=== PATIENT | male | born 1995 | race Caucasian/White ===

== ENCOUNTER 2020-04-18 09:48 | Emergency (ER) | payer SELFPAY ==
--- OUTSIDE RECORDS SUMMARY | 2020-04-18 10:49 | XMS REPORT | Continuity of Care Document ---
:1995 Author Organization [facility] t Address [address] [place] [address] Care Team Providers Name Role Phone Asked, Pcp Primary Care Physician Unavailable Micaela MONTGOMERY, RAleyda Attending Clinician Problems This patient has no known problems. Allergies, Adverse Reactions, Alerts This patient has no known allergies or adverse reactions. Social History Social Habit Start Date Stop Date Quantity Comments Source Sex Assigned At Saman Smith Medications This patient has no known medications. Vital Signs Vital Name Observation Time Observation Value Comments Source Systolic blood 2019-06-17 19:57:00 134 mm[Hg] Afshanto n Catholic pressure Diastolic blood 2019-06-17 19:57:00 84 mm[Hg] Jelly on Catholic pressure Heart rate 2019-06-17 19:57:00 72 /min Yasmany Smith Respiratory rate 2019-06-17 19:57:00 16 /min Afshan Smith Oxygen saturation in 2019-06-17 19:57:00 99 /min Yasmany Smith Arterial blood by Pulse oximetry Body temperature 2019-06-17 16:58:30 36.89 Elo Afshan Smith Body height 2019-06-17 16:58:00 188 cm Yasmany Smith Procedures Procedure Date / Time Performed Performing Clinician [facility] e HC COMPLETE BLD COUNT 2019-06-17 18:15:00 Sheri Duffy W/AUTO DIFF COMPREHENSIVE METABOLIC 2019-06-17 18:15:00 Sheri Duffy PANEL LIPASE LEVEL 2019-06-17 18:15:00 Sheri Duffy [facility] ESTIMATED GFR 2019-06-17 18:15:00 Sheri Duffy [facility] Results Test Description Test Time Test Comments Results Result Comments Source Comprehensive metabolic panel 2019-06-17 19:12:10 Test Item Value Reference Range Interpretation Comme nts Sodium (test code = 2951-2) 132 135- 148 mEq/L L Potassium (test code = 2823-3) 3.4 3.5- 5.0 mEq/L L Chloride (test code = 2075-0) 94 98- 112 mEq/L L CO2 (test code = 2027-9) 20 24- 31 mEq/L L Anion gap (test code = 80206-7) 18@ANIO 7- 15 mEq/L H BUN (test code = 3094-0) 14 mg/dL 6-20 Creatinine (test code = 2160-0) 1.10 mg/dL 0.7-1.2 Glucose (test code = 2345-7) 98 mg/dL 65-99 Calcium (test code = 47157-1) 9.4 mg/dL 8.3-10.2 Protein (test code = 2885-2) 8.2 g/dL 6.3-8.3 Vokhjbg0920.6-7.0 g/dL1 laiq5200. 4-7.6 g/dL7 months-0eomw181 .1-7.3 g/dL1-2 taytw435.6-7.5 g/dL>3 bllfo544.0-8.0 g/xE40-5162953. 3-8.3 g/dL Albumin (test code = 1751-7) 4.2 g/dL 3.5-5 A/G ratio (test code = 1759-0) 1.0 0.7-3.8 Alkaline phosphatase (test code = 91 U/L 40-129 68-6) AST (test code = 1920-8) 107 U/L 10-50 H ALT (test code = 1742-6) 52 U/L 5-50 H Total bilirubin (test code = 1974-2) 0.7 mg/dL 0-1.2 Lab Interpretation (test code = Abnormal 08979-9) Yasmany MethodistLipase [id number] 19:12:10 Test Item Value Reference Range Interpretation Comments Lipase (test code = 3040-3) 27 U/L 13-60 Yasmany MethodistEstimated [id number] 19:12:10 Test Item Value Reference Range Interpretation Comments Estimated GFR (test >=90 mL/min/1.73 m2 Dax bingham Units code = 5488) InterpretationG 1 >=90 Normal or highG2 60-89 Mildly wftozwquqF2f 45-59 Mildly to mode rately xlunqiiwlN9v 30-44 Moderately to severely decreasedG4 15-29 Severely decre asedG5 <15 Kidn ey failureThe eGFR was calculated anita stevenson the Chronic Kidney Disease Epidemiology Co llaboration (CKD-EPI) equat ion. Interpretation is based on recommendations of the National Kidney Foundation-Kidn ey Disease Outcomes Qualit y Initiative (NKF-KDOQI) pub lished in 2014. [facility] MethodistCBC with platelet and awvpfxwphtci8310-51-96 18:49:23 Test Item Value Reference Range Interpretation Comments WBC (test code = 98940-4) 9.24 4.50- 11.00 k/uL RBC (test code = 67460-8) 5.57 m/uL 4.4-6 HGB (test code = 718-7) 14.6 g/dL 14-18 HCT (test code = 4544-3) 45.4 % 41-51 MCV (test code = 787-2) 81.5 fL 82-100 L MCH (test code = 785-6) 26.2 pg 27-34 L MCHC (test code = 786-4) 32.2 g/dL 31-37 RDW - SD (test code = 39.8 fL 37-55 11173-2) MPV (test code = 54779-2) 11.9 fL 8.8-13.2 Platelet count (test code 217 150- 400 k/uL = 62682-2) Nucleated RBC (test code 0.00 /100 WBC = 28441-0) Neutrophils (test code = 71.1 % 39-69 H 13442-8) Lymphocytes (test code = 14.8 % 25-45 L 33736-5) Monocytes (test code = 12.1 % 0-10 H 11477-1) Eosinophils (test code = 1.5 % 0-5 20353-5) Basophils (test code = 0.2 % 0-1 35521-5) Immature granulocytes 0.3 % 0-1 "Immat ure (test code = 31652-7) granul ocytes" (promyelocytes, myelocytes, metamyelocytes) Lab Interpretation (test Abnormal code = 59768-2) Yasmany MethodyuriUrine Ovwfgai2159-41-63 12:55:57 C Urine Added by GL_SJM_UA_CUL_INDNo growth at 24 hours. No growth at 48 [address].CT Abdomen and Pelvis w/ [id number] 15:14:34Patient: TERESA SINGH Date/Time06/13/2019 15:08 CSTReason for ExamRLQ;Abdominal painReportCT OF THE ABDOMEN AND PELVIS WITH CONTRASTLocation R 16HISTORY: Right lower quadrant painTECHNIQUE:5 millimeters contrast enhanced axial images of the abdomen and pelvis provided in venous delays. No PO contrast was administered. The images were reviewed in soft tissue, lung and bone windows. Sagittal and coronal images were reformatted. One or more the following dose reduction techniques is utilized: Use of iterative reconstruction, automated exposure control, adjustment of the mAs and Kv for the patient's weight. DLP 994.1 mGy-cm. Dose savings 22%.COMPARISON: None.FINDINGS:Lung bases: Clear.Abdomen Findings:Liver: No significant abnormality.Gallbladder: No significant abnormality.Pancreas: No significant abnormality.Spleen: No significantabnormality.Kidneys: No significant abnormality.Adrenals: No significant abnormality.Bowel: No significant abnormality.Appendix: Well identified and normal.Bone Windows: No significant abnormality.Vascular:No significant abnormality. Incidental note of a circumaortic left renal vein. Note multiple accessory right renal arteries.Lymph Nodes:No significant abnormality.Pelvis Findings:Bladder: No significant abnormality.Prostate: No significant abnormality.Seminal vesicles: No significant abnormality.IMPRESSION:1. Normal right lower quadrant appendixExam Date/Time06/13/2019 15:08 CSTReport2. No acute intra-abdominal findings identified by CT criteria. Final Dictated by: MD Karyna, Jenny FDictated DT/TM: 06/13/2019 3:10 pmSigned by: MD Troncoso Eniola FSigned (Electronic Signature): 06/13/2019 3:14 pmComprehensive Metabolic [id number] 14:41:50 Test Item Value Reference Range Interpretation Comments Sodium Level (test 138.0 mmol/L 135.0-145.0 code = Sodium Level) Potassium Level 4.3 mmol/L 3.5-5.1 (test code = Potassium Level) Chloride Level (test 100 mmol/L 98-105 code = Chloride Level) CO2 (test code = 25 mmol/L 22-29 CO2) Anion Gap (test code 13 mmol/L 7-16 = Anion Gap) BUN (test code = 7.50 mg/dL 6.00-20.00 BUN) Creatinine Level 0.90 mg/dL 0.70-1.20 (test code = Creatinine Level) BUN/Creat Ratio 8 N (test code = BUN/Creat Ratio) Glucose Level (test 83 mg/dL 70-115 code = Glucose Level) Calcium Level (test 9.4 mg/dL 8.3-10.5 code = Calcium Level) Alk Phos (test code 92 U/L 40-129 = Alk Phos) Bilirubin Total 0.4 mg/dL 0.1-0.9 (test code = Bilirubin Total) Albumin Level (test 4.7 g/dL 3.5-5.2 code = Albumin Level) Protein Total (test 7.9 g/dL 6.4-8.3 code = Protein Total) ALT (test code = 17 U/L 1-41 ALT) AST (test code = See Comments U/L 1-40 N Specime n AST) hemolyzed. AST 28 Globulin (test code 3.2 g/dL 2.9-3.1 H = Globulin) A/G Ratio (test code 1.5 ratio N = A/G Ratio) Lipase [id number] 14:41:50 Test Item Value Reference Range Interpretation Comments Lipase Level (test code = Lipase 27 U/L 13-60 Level) Comprehensive Metabolic [id number] 14:41:50 Test Item Value Reference Range Interpretation Comments Sodium Level (test 138.0 mmol/L 135.0-145.0 code = Sodium Level) Potassium Level 4.3 mmol/L 3.5-5.1 (test code = Potassium Level) Chloride Level 100 mmol/L 98-105 (test code = Chloride Level) CO2 (test code = 25 mmol/L 22-29 CO2) Anion Gap (test 13 mmol/L 7-16 code = Anion Gap) BUN (test code = 7.50 mg/dL 6.00-20.00 BUN) Creatinine Level 0.90 mg/dL 0.70-1.20 (test code = Creatinine Level) BUN/Creat Ratio 8 N (test code = BUN/Creat Ratio) Glucose Level (test 83 mg/dL 70-115 code = Glucose Level) Calcium Level (test 9.4 mg/dL 8.3-10.5 code = Calcium Level) Alk Phos (test code 92 U/L 40-129 = Alk Phos) Bilirubin Total 0.4 mg/dL 0.1-0.9 (test code = Bilirubin Total) Albumin Level (test 4.7 g/dL 3.5-5.2 code = Albumin Level) Protein Total (test 7.9 g/dL 6.4-8.3 code = Protein Total) ALT (test code = 17 U/L 1-41 ALT) AST (test code = See Comments U/L 1-40 N Specime n hemolyzed. AST) AST 28 Globulin (test code 3.2 g/dL 2.9-3.1 H = Globulin) A/G Ratio (test 1.5 ratio N code = A/G Ratio) eGFR AA (test code >60 mL/min/1.73 N eGFR ( estimated = eGFR AA) m2 Glomerular Filtration Rate ) is an estimated va lue, calculated from the patient's serum creatinine usin g the MDRD equati on. It is NOT the patient's actua l GFR. The eGFR provides a more clinically usef ul measure of kidn ey disease than se rum creatinine alone.This calculation maryan es sex and race in to account, if the information is provided. If th e race is not provided, and t he patient is -Carri n, multiply by 1.2 12. If sex is not provided, and t he patient is fema le, multiply by 0.7 42. Results for patients <18 ye ars of age have not been validated by the MDRD study and should be interpreted wit h caution. eGFR Result Interpretation: eGFR > or = 60 is in the Normal RangeeGF R < 60 may mean kid jennie diseaseeGFR < 1 5 may mean kidney failure Rang es recommended by the National Kidney Foundation, http://nkdep.ni h.go v Comprehensive Metabolic [id number] 14:41:50 Test Item Value Reference Range Interpretation Comments Sodium Level (test 138.0 mmol/L 135.0-145.0 code = Sodium Level) Potassium Level 4.3 mmol/L 3.5-5.1 (test code = Potassium Level) Chloride Level 100 mmol/L 98-105 (test code = Chloride Level) CO2 (test code = 25 mmol/L 22-29 CO2) Anion Gap (test 13 mmol/L 7-16 code = Anion Gap) BUN (test code = 7.50 mg/dL 6.00-20.00 BUN) Creatinine Level 0.90 mg/dL 0.70-1.20 (test code = Creatinine Level) BUN/Creat Ratio 8 N (test code = BUN/Creat Ratio) Glucose Level (test 83 mg/dL 70-115 code = Glucose Level) Calcium Level (test 9.4 mg/dL 8.3-10.5 code = Calcium Level) Alk Phos (test code 92 U/L 40-129 = Alk Phos) Bilirubin Total 0.4 mg/dL 0.1-0.9 (test code = Bilirubin Total) Albumin Level (test 4.7 g/dL 3.5-5.2 code = Albumin Level) Protein Total (test 7.9 g/dL 6.4-8.3 code = Protein Total) ALT (test code = 17 U/L 1-41 ALT) AST (test code = See Comments U/L 1-40 N Specime n hemolyzed. AST) AST 28 Globulin (test code 3.2 g/dL 2.9-3.1 H = Globulin) A/G Ratio (test 1.5 ratio N code = A/G Ratio) eGFR AA (test code >60 mL/min/1.73 N eGFR ( estimated = eGFR AA) m2 Glomerular Filtration Rate ) is an estimated va lue, calculated from the patient's serum creatinine usin g the MDRD equati on. It is NOT the patient's actua l GFR. The eGFR provides a more clinically usef ul measure of kidn ey disease than se rum creatinine alone.This calculation maryan es sex and race in to account, if the information is provided. If th e race is not provided, and t he patient is -Carri n, multiply by 1.2 12. If sex is not provided, and t he patient is fema le, multiply by 0.7 42. Results for patients <18 ye ars of age have not been validated by the MDRD study and should be interpreted wit h caution. eGFR Result Interpretation: eGFR > or = 60 is in the Normal RangeeGF R < 60 may mean kid jennie diseaseeGFR < 1 5 may mean kidney failure Rang es recommended by the National Kidney Foundation, http://nkdep.ni h.go v eGFR Non-AA (test >60.00 N eGFR (sunil mated code = eGFR Non-AA) mL/min/1.73 m2 Glomer ular Filtration Rate ) is an estimated va lue, calculated from the patient's serum creatinine usin g the MDRD equati on. It is NOT the patient's actua l GFR. The eGFR provides a more clinically usef ul measure of kidn ey disease than se rum creatinine alone.This calculation maryan es sex and race in to account, if the information is provided. If th e race is not provided, and t he patient is -Carri n, multiply by 1.2 12. If sex is not provided, and t he patient is fema le, multiply by 0.7 42. Results for patients <18 ye ars of age have not been validated by the MDRD study and should be interpreted wit h caution. eGFR Result Interpretation: eGFR > or = 60 is in the Normal RangeeGF R < 60 may mean kid jennie diseaseeGFR < 1 5 may mean kidney failure Rang es recommended by the National Kidney Foundation, http://nkdep.ni h.go v Urinalysis with Culture, if [id number] 14:13:35 Test Item Value Reference Range Interpretation Comments UA Color (test code = UA YELLO Yellow Color) UA Appear (test code = CLEAR Clear UA Appear) UA pH (test code = UA 7 N pH) UA Spec Grav (test code 1.025 1.001-1.035 = UA Spec Grav) UA Glucose (test code = NEG Negative UA Glucose) UA Bili (test code = UA 1 mg/dL Negative A Bili) UA Ketones (test code = 15 mg/dL Negative A UA Ketones) UA Blood (test code = UA NEG Negative Blood) UA Protein (test code = NEG Negative UA Protein) UA Urobilinogen (test 4 mg/dL >0.2 A code = UA Urobilinogen) UA Nitrite (test code = NEG Negative UA Nitrite) UA Leuk Est (test code = NEG Negative UA Leuk Est) UA Micro Ind? (test code Indicated Not Indicated A Re sult created by = UA Micro Ind?) rule GL_SJM_UA_MICRO _IND Urinalysis [id number] 14:13:34 Test Item Value Reference Range Interpretation Comments UA WBC (test code = UA WBC) 0-5 0-5 UA RBC (test code = UA RBC) 0-5 0-5 UA Bacteria (test code = UA Few A Bacteria) UA Squam Epithelial (test code = UA 0-5 Squam Epithelial) UA Mucous (test code = UA Mucous) Moderate A Complete Blood Count with [id number] 13:47:22 Test Item Value Reference Range Interpretation Comments WBC (test code = WBC) 9.6 x10 4.4-10.5 RBC (test code = RBC) 5.62 x10 4.10-5.70 Hgb (test code = Hgb) 14.8 g/dL 13.4-17.4 MCV (test code = MCV) 82.70 fL 80.00-100.00 Hct (test code = Hct) 46.5 % 38.7-52.0 MCHC (test code = 31.80 g/dL 32.00-37.50 L MCHC) RDW CV (test code = 13.8 % 11.5-14.5 RDW CV) MCH (test code = MCH) 26.3 pg 27.0-32.5 L Platelets (test code = 215.0 x10 140.0-440.0 Platelets) MPV (test code = MPV) 11.8 fL N Slide Review (test Auto Auto Result cr eated by code = Slide Review) GL_SJM_ SLIDE_REV_AUTO nRBC (test code = 0 N nRBC) NRBC Abs (test code = 0.00 x10 N NRBC Abs) IPF (test code = IPF) 0 % N Automated [id number] 13:47:22 Test Item Value Reference Range Interpretation Comments Neutro Auto (test code = Neutro 74.2 % 36.0-70.0 H Auto) Lymph Auto (test code = Lymph Auto) 15.2 % 12.0-44.0 [place] Auto (test code = [place] Auto) 9.0 % 0.0-11.0 Eos, Auto (test code = Eos, Auto) 1.1 % 0.0-7.0 Basophil Auto (test code = Basophil 0.2 % 0.0-2.0 Auto) Neutro Absolute (test code = Neutro 7.1 x10 1.6-7.4 Absolute) Lymph Absolute (test code = Lymph 1.46 x10 .50-4.60 Absolute) [place] Absolute (test code = [place] .86 x10 .00-1.20 Absolute) Eos Absolute (test code = Eos 0.11 x10 0.00-0.74 Absolute) Baso Absolute (test code = Baso 0.02 x10 0.00-0.21 Absolute) IG [id number] 13:47:22 Test Item Value Reference Range Interpretation Comments IG (test code = IG) 0.3 % 0.0-5.0 IG Abs (test code = IG Abs) 0 x10 N
--- OUTSIDE RECORDS SUMMARY | 2020-04-18 10:49 | XMS REPORT | Clinical Summary ---
:1995 Author Organization [facility] Address [address] [place] [address] Care Team Providers Name Role Phone Asked, No Pcp Primary Care Provider Unavailable Allergies No Known Active Allergies Medications No known medications Active Problems Not on file Encounters Date Type Specialty Care Team Description 06/17/2019 Emergency Emergency Medicine Candelaria Hinojosa (Primary Dx); Juan William MD Nausea and v omiting, intractability of vomiting not specified, unspecified vomiting type after 04/18/2019 Social History Tobacco Use Types Packs/Day Years Used Date Never Assessed Sex Assigned at Date Recorded Not on file Last Filed Vital Signs Vital Sign Reading Time Taken Comments Blood Pressure 134/84 06/17/2019 7:57 PM [employer] Pulse 72 06/17/2019 7:57 PM [employer] Temperature 36.9 C (98.4 F) 06/17/2019 4:58 PM [employer] Respiratory Rate 16 06/17/2019 7:57 PM [employer] Oxygen Saturation 99% 06/17/2019 7:57 PM [employer] Inhaled Oxygen Concentration - - Weight - - Height 188 cm (6' 2") 06/17/2019 4:58 PM [employer] Body Mass Index - - Plan of Treatment Not on file Procedures Procedure Name Priority Date/Time Associated Comments Diagnosis ESTIMATED GFR STAT 06/17/2019 6:15 Results fo r this PM [employer] procedure are i n the results section. LIPASE LEVEL STAT 06/17/2019 6:15 Results for this PM [employer] procedure are i n the results section. COMPREHENSIVE STAT 06/17/2019 6:15 Results fo r this METABOLIC PANEL PM [employer] procedure ar e in the results section. HC COMPLETE BLD COUNT STAT 06/17/2019 6:15 Re sults for this W/AUTO DIFF PM [employer] procedure are i n the results section. after 04/18/2019 Results Estimated GFR (06/17/2019 6:15 PM [employer]) Estimated GFR >=90 mL/min/1.73 [facility] Comment: m2 HOSPITAL Catergory Units Interpretation G1 >=90 Normal or high G2 60-89 Mildly decreased G3a 45-59 Mildly to moderately decreas ed G3b 30-44 Moderately to severely decre ased G4 15-29 Severely decreased G5 <15 Kidney failure The eGFR was calculated using the Chronic Kidney Disea se Epidemiology Collaboration (CKD-EPI) equation. Interpretation is based on recommendations of the National Kidney Foundation-Kidney Disease Outcomes Rebel lity Initiative (NKF-KDOQI) published in 2014. Specimen Plasma specimen Performing Organization Address City/State/ZIP Code Phon e Number [facility] DEPARTMENT OF PATHOLOGY AND [address] [place], [place] [address] [facility] [address] [place] [address] CBC with platelet and differential (06/17/2019 6:15 PM [employer]) Pathologist [facility] WBC 9.24 4.50 - 11.00 [facility] k/uL HOSPITAL RBC 5.57 4.40 - 6.00 [facility] m/uL [facility] HGB 14.6 14.0 - 18.0 [facility] HCT 45.4 41.0 - 51.0 % [facility] MCV 81.5 (L) 82.0 - 100.0 [facility] MCH 26.2 (L) 27.0 - 34.0 pg [facility] MCHC 32.2 31.0 - 37.0 [facility] RDW - SD 39.8 37.0 - 55.0 fL [facility] MPV 11.9 8.8 - 13.2 fL [facility] Platelet count 217 150 - 400 k/uL [facility] Nucleated RBC 0.00 /100 WBC [facility] Neutrophils 71.1 (H) 39.0 - 69.0 % [facility] Lymphocytes 14.8 (L) 25.0 - 45.0 % [facility] Monocytes 12.1 (H) 0.0 - 10.0 % [facility] Eosinophils 1.5 0.0 - 5.0 % [facility] Basophils 0.2 0.0 - 1.0 % [facility] Immature granulocytes 0.3Comment: 0.0 - 1.0 % [facility] "Immature HOSPITAL granulocytes" (promyelocytes , myelocytes, metamyelocytes ) Specimen Blood Performing Organization Address City/[facility] Phon e Number [facility] DEPARTMENT OF PATHOLOGY AND [address] [place], [place] [address] [facility] [address] [place] [address] Lipase level (06/17/2019 6:15 PM [employer]) Pathologist Sig nature Lipase 27 13 - 60 U/L [facility] Specimen Plasma specimen Performing Organization Address City/[facility] Phon e Number [facility] DEPARTMENT OF PATHOLOGY AND [address] [place], [place] [address] [facility] [address] [place] [address] Comprehensive metabolic panel (06/17/2019 6:15 PM [employer]) Sodium 132 (L) 135 - 148 [facility] mEq/L [facility] Potassium 3.4 (L) 3.5 - 5.0 [facility] mEq/L [facility] Chloride 94 (L) 98 - 112 mEq/L [facility] CO2 20 (L) 24 - 31 mEq/L [facility] Anion gap 18@ANIO (H) 7 - 15 mEq/L [facility] BUN 14 6 - 20 mg/dL [facility] Creatinine 1.10 0.70 - 1.20 [facility] mg/dL HOSPITAL Glucose 98 65 - 99 mg/dL [facility] Calcium 9.4 8.3 - 10.2 [facility] mg/dL [facility] Protein 8.2 6.3 - 8.3 g/dL [facility] Comment: HOSPITAL Ygyguqx8101.6-7.0 g/dL 1 xeht6813.4-7.6 g/dL 7 months-1lovw041.1-7.3 g/dL 1-2 jxtok386.6-7.5 g/dL >3 .0-8.0 g/dL 18-5578954.3-8.3 g/dL Albumin 4.2 3.5 - 5.0 g/dL [facility] A/G ratio 1.0 0.7 - 3.8 [facility] Alkaline phosphatase 91 40 - 129 U/L [facility] AST 107 (H) 10 - 50 U/L [facility] ALT 52 (H) 5 - 50 U/L [facility] Total bilirubin 0.7 0.0 - 1.2 [facility] mg/dL HOSPITAL Specimen Plasma specimen Performing Organization Address City/State/ZIP Code Phon e Number [facility] DEPARTMENT OF PATHOLOGY AND [address] [place], [place] [address] [facility] [address] [place] [address] after 04/18/2019 Advance Directives For more information, please contact: [phone] Type Date Recorded Patient [employer] Explanati on Advance Directives, Living Will and 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
--- NOTE | 2020-04-18 11:44 | RAD REPORT ---
EXAM DESCRIPTION: RAD - Ankle Right 3 View - 04/18/2020 10:52 am CLINICAL HISTORY: Right ankle pain FINDINGS: 6 millimeter bony density lies adjacent to the lateral aspect of the talus probably an acu te avulsion fracture. There is adjacent soft tissue swelling. No dislocation noted
--- NOTE | 2020-04-18 11:50 | ER ---
Nurse's Notes [facility] Name: Jose Rafael Stevenson Age: 24 yrs Sex: Male : 1995 Arrival Date: 04/18/2020 Time: 09:49 Bed 20 Private MD: Diagnosis: Avulsion fracture (chip fracture) of talus Presentation: 04/18 10:17 Chief complaint: Patient states: R ankle pain that began yesterday after stepping in a ss hole. Coronavirus screen: Client denies travel out of the [place] in the last 14 days. Ebola Screen: Patient denies exposure to infectious person. Patient denies travel to an Ebola-affected area in the 21 days before illness onset. Initial Sepsis Screen: Does the patient meet any 2 criteria? No. Patient's initial sepsis screen is negative. Does the patient have a suspected source of infection? No. Patient's initial sepsis screen is negative. Risk Assessment: Do you want to hurt yourself or someone else? Patient reports no desire to harm self or others. Onset of symptoms was April 18, 2020. 10:17 Method Of Arrival: Wheelchair ss 10:17 Acuity: DOMO 4 ss Historical: - Allergies: 10:18 No Known Allergies; ss - Home Meds: 10:18 None [Active]; ss - PMHx: 10:18 None; ss - PSHx: 10:18 None; ss - Immunization history:: Adult Immunizations up to date. - Social history:: Smoking status: Patient reports the use of cigarette tobacco products, smokes one pack cigarettes per day. Screenin:19 Abuse screen: Denies threats or abuse. Denies injuries from another. Nutritional ss screening: No deficits noted. Tuberculosis screening: Never had TB. 10:19 Fall Risk No fall in past 12 months (0 pts). Secondary diagnosis (15 points) impaired ss mobility, No IV (0 pts). Ambulatory Aid- None/Bed Rest/Nurse Assist (0 pts). Gait- Normal/Bed Rest/Wheelchair (0 pts) Mental Status- Oriented to own ability (0 pts). Assessment: 10:19 General: Appears in no apparent distress. comfortable, Behavior is calm, cooperative. ss Pain: Complains of pain in anterior aspect of right ankle Pain currently is 10 out of 10 on a pain scale. Quality of pain is described as aching, tender. Neuro: Level of Consciousness is awake, alert, obeys commands, Oriented to person, place, time, situation, Speech is normal, Facial symmetry appears normal. Cardiovascular: Capillary refill < 3 seconds is brisk in bilateral fingers. Respiratory: Airway is patent Respiratory effort is even, unlabored, Respiratory pattern is regular, symmetrical. GI: Patient currently denies diarrhea, nausea, vomiting. :. EENT: No signs and/or symptoms were reported regarding the EENT system. Derm: Skin is intact, is healthy with good turgor, Skin is dry, Skin is pink, warm \T\ dry. normal. Musculoskeletal: Range of motion: intact in all extremities, Swelling present in anterior aspect of right ankle. Vital Signs: 10:17 BP 129 / 92; Pulse 99; Resp 16; Temp 98.2(TE); Pulse Ox 99% ; Height 6 ft. 2 in. ss (187.96 cm); Pain 10/10; ED Course: 09:49 Patient arrived in ED. as 09:50 Natal[facility] Swift [facility]C [facility] kb 09:50 Joaquin Cornelius MD is Attending Physician. kb 10:18 Triage completed. ss 10:18 Arm band placed on right wrist. ss 10:19 Patient has correct armband on for positive identification. ss 10:54 Ankle Right 3 View XRAY In Process Unspecified. EDMS 12:05 Emily Gil, RN is Primary Nurse. ss 12:22 Orthoglass splint: Posterior short lleg splint applied on right leg. capillary refill dh3 <3 seconds, assisted by Emily Gil and viewed by Nataliya Swift. 12:44 No provider procedures requiring assistance completed. Patient did not have IV access ss during this emergency room visit. Administered Medications: No medications were administered Outcome: 11:50 Discharge ordered by . kb 12:44 Discharged to home ambulatory. ss 12:44 Condition: good 12:44 Discharge instructions given to patient, Instructed on discharge instructions, follow up and referral plans. medication usage, Demonstrated understanding of instructions, follow-up care, medications, Prescriptions given X 1. 12:51 Patient left the ED. ss Signatures: Dispatcher [employer] EDIA Nataliya Swift FNP-C FNP-Chantel Tapia as Emily Gil RN RN Christelle Rodrigues 3 Corrections: (The following items were deleted from the chart) 12:22 Orthoglass splint: Posterior short lleg splint applied on right leg. capillary dh3 refill <3 seconds 3 12:22 Orthoglass splint: Posterior short lleg splint applied on right leg. capillary dh3 refill <3 seconds, viewed by Nataliya Swift. 3
--- NOTE | 2020-04-18 11:50 | EDPHYS ---
Physician Documentation [facility] Name: Jose Rafael Stevenson Age: 24 yrs Sex: Male : 1995 Arrival Date: 04/18/2020 Time: 09:49 Bed 20 Private MD: ED Physician Joaquin Cornelius HPI: 04/18 11:48 This 24 yrs old Male presents to ER via Wheelchair with complaints of Ankle kb Injury. 11:48 The patient presents with an injury, pain, swelling, tenderness. The complaints affect kb the right ankle. Onset: The symptoms/episode began/occurred yesterday. Context: The problem was sustained outdoors, resulted from stepping in hole. Associated signs and symptoms: Pertinent positives: swelling, Pertinent negatives: calf tenderness, fever, nausea, numbness, rash, tingling, vomiting, warmth, weakness. Modifying factors: The symptoms are alleviated by nothing, the symptoms are aggravated by weight bearing. Severity of symptoms: At their worst the symptoms were moderate, in the emergency department the symptoms are unchanged. The patient has not experienced similar symptoms in the past. The patient has not recently seen a physician. Historical: - Allergies: 10:18 No Known Allergies; ss - Home Meds: 10:18 None [Active]; ss - PMHx: 10:18 None; ss - PSHx: 10:18 None; ss - Immunization history:: Adult Immunizations up to date. - Social history:: Smoking status: Patient reports the use of cigarette tobacco products, smokes one pack cigarettes per day. ROS: 11:46 Constitutional: Negative for fever, chills, and weight loss, Cardiovascular: Negative kb for chest pain, palpitations, and edema, Respiratory: Negative for shortness of breath, cough, wheezing, and pleuritic chest pain, Abdomen/GI: Negative for abdominal pain, nausea, vomiting, diarrhea, and constipation, Back: Negative for injury and pain, Skin: Negative for injury, rash, and discoloration, Neuro: Negative for headache, weakness, numbness, tingling, and seizure. 11:46 MS/extremity: Positive for pain, swelling, tenderness, of the anterior aspect of right ankle. Exam: 11:46 Constitutional: This is a well developed, well nourished patient who is awake, alert, kb and in no acute distress. Head/Face: Normocephalic, atraumatic. Chest/axilla: Normal chest wall appearance and motion. Nontender with no deformity. No lesions are appreciated. Cardiovascular: Regular rate and rhythm with a normal S1 and S2. No gallops, murmurs, or rubs. Normal PMI, no JVD. No pulse deficits. Respiratory: Lungs have equal breath sounds bilaterally, clear to auscultation and percussion. No rales, rhonchi or wheezes noted. No increased work of breathing, no retractions or nasal flaring. Abdomen/GI: Soft, non-tender, with normal bowel sounds. No distension or tympany. No guarding or rebound. No evidence of tenderness throughout. Skin: Warm, dry with normal turgor. Normal color with no rashes, no lesions, and no evidence of cellulitis. Neuro: Awake and alert, GCS 15, oriented to person, place, time, and situation. Cranial nerves II-XII grossly intact. Motor strength 5/5 in all extremities. Sensory grossly intact. Cerebellar exam normal. Normal gait. 11:46 Musculoskeletal/extremity: Extremities: grossly normal except: noted in the anterior aspect of right ankle: pain, swelling, tenderness, ROM: intact in all extremities, Circulation is intact in all extremities. Sensation intact. Weight bearing: can bear weight with assistance only. Vital Signs: 10:17 BP 129 / 92; Pulse 99; Resp 16; Temp 98.2(TE); Pulse Ox 99% ; Height 6 ft. 2 in. ss (187.96 cm); Pain 10/10; Procedures: 14:01 Splinting: Splint applied to right leg using Orthoglass splint, applied by tech. kb Examined by me, post splint application: neurovascular intact, 2+ distal pulses palpable, Patient tolerated well. MDM: 10:19 Patient medically screened. kb 11:48 Data reviewed: vital signs, nurses notes. Data interpreted: Pulse oximetry: on room air kb is 99 %. Interpretation: normal. Counseling: I had a detailed discussion with the patient and/or guardian regarding: the historical points, exam findings, and any diagnostic results supporting the discharge/admit diagnosis, radiology results, the need for outpatient follow up, a orthopedic surgeon, to return to the emergency department if symptoms worsen or persist or if there are any questions or concerns that arise at home. 04/18 10:19 Order name: Ankle Right 3 View XRAY; Complete Time: 11:45 kb 04/18 11:46 Order name: Short Leg Splint; Complete Time: 12:25 kb 04/18 11:46 Order name: Crutches; Complete Time: 12:25 kb Administered Medications: No medications were administered Disposition: 04/18/20 11:50 Discharged to Home. Impression: Avulsion fracture (chip fracture) of talus. - Condition is Stable. - Discharge Instructions: Ankle Fracture, [id number]. - Prescriptions for Ibuprofen 800 mg Oral Tablet - take 1 tablet by ORAL route every 8 hours As needed take with food; 30 tablet. - Medication Reconciliation Form, Thank You Letter, Antibiotic Education, Prescription Opioid Use form. - Follow up: Emergency Department; When: As needed; Reason: Worsening of condition. Follow up: Private Physician; When: 2 - 3 days; Reason: Recheck today's complaints, Continuance of care, Re-evaluation by your physician. Addendum: 04/19/2020 13:20 Co-signature as Attending Physician, Joaquin Cornelius MD I agree with the assessment and k dr plan of care. Signatures: Dispatcher [employer] EDMS Nataliya Swift, DOOR CAPTAIN-C DOOR CAPTAIN-Ckb Joaquin Cornelius MD MD [facility] Emily Gil RN RN ss Corrections: (The following items were deleted from the chart) 04/18 12:51 11:50 04/18/2020 11:50 Discharged to Home. Impression: Avulsion fracture (chip ss fracture) of talus. Condition is Stable. Forms are Medication Reconciliation Form, Thank You Letter, Antibiotic Education, Prescription Opioid Use. Follow up: Emergency Department; When: As needed; Reason: Worsening of condition. Follow up: Private Physician; When: 2 - 3 days; Reason: Recheck today's complaints, Continuance of care, Re-evaluation by your physician. kb
[2020-04-18 13:08] VITALS: BP 129/92; TEMP 98.2; O2SAT 99
== END 2020-04-18 12:51 | disposition home or self-care (01) ==
LOC: ER 09:48
PROC: 2W3QX1Z Immobilization of Right Lower Leg using Splint (ICD-10-PCS; principal; 2020-04-18)
DX: S92.151A Displaced avulsion fracture (chip fracture) of right talus, initial encounter for closed fracture (principal); X58.XXXA Exposure to other specified factors, initial encounter; Y93.01 Activity, walking, marching and hiking; Y92.89 Other specified places as the place of occurrence of the external cause; F17.210 Nicotine dependence, cigarettes, uncomplicated
CPT/HCPCS: 99283

== ENCOUNTER 2022-02-26 21:01 | Emergency (ER) | payer SELFPAY ==
--- OUTSIDE RECORDS SUMMARY | 2022-02-26 21:04 | XMS REPORT | Continuity of Care Document ---
:1995 Author Organization [facility] t Address [address] [place] [address] [address] [place] [address] Care Team Providers Name Role Phone Asked, No Pcp Primary Care Physician Unavailable Problems This patient has no known problems. Allergies, Adverse Reactions, Alerts This patient has no known allergies or adverse reactions. Social History Social Habit Start Date Stop Date Quantity Comments Source Sex Assigned At [birth year] [facility] 00:00:00 00:00:00 Smoking Status Start Date Stop Date Source Tobacco smoking consumption unknown [facility] Medications Ordered Filled Start Stop Current Ordering Indication Dosage Frequency Signature Comments Components Source Medication Medication Date Date Medication? Clinician (SIG) Name Name No known 2018-07 No No known Metho di medications 2-[address] 17:12: [facility] l Procedures This patient has no known procedures. Results Test Description Test Time Test Comments Results Result [facility] e Comments Urine Culture 2019-06-14 C Urine Added No growth at 24 hours. 12:55:57 by No growth at 48 hours. GL_SJM_UA_CUL_ IND CT Abdomen and 2019-06-13 Patient: TERESA SINGH Pelvis w/ Contrast 15:14:34 Date/Time06/13/2019 15:08 CSTReason for ExamRLQ;Abdominal painReportCT OF [...] 22%.COMPARISON: None.FINDINGS:Lung bases: Clear.Abdomen Findings:Liver: No significant abnormality.Gallbladde r: No significant abnormality.Pancreas: No significant abnormality.Spleen: No significant abnormality.Kidneys: No significant abnormality.Adrenals: No significant abnormality.Bowel: No significant abnormality.Appendix: Well identified and normal.Bone Windows: No significant abnormality.Vascular:N o significant abnormality. Incidental note of a circumaortic left renal vein. Note multiple accessory right renal arteries.Lymph Nodes:No significant abnormality.Pelvis Findings:Bladder: No significant abnormality.Prostate: No significant abnormality.Seminal vesicles: No significant abnormality.IMPRESSION :1. Normal right lower quadrant appendixExam Date/Time06/13/2019 15:08 CSTReport2. No acute intra-abdominal findings identified by CT criteria. Final Dictated by: MD Troncoso Eniola FDictated DT/TM: 06/13/2019 3:10 pmSigned by: MD Troncoso Eniola FSigned (Electronic Signature): 06/13/2019 3:14 pm Comprehensive Metabolic Panel 2019-06-13 14:41:50 Test Item Value Reference Range Interpretation Comme nts Sodium Level (test code = 138.0 mmol/L 135.0-145.0 Sodium Level) Potassium Level (test code = 4.3 mmol/L 3.5-5.1 Potassium Level) Chloride Level (test code = 100 mmol/L 98-105 Chloride Level) CO2 (test code = CO2) 25 mmol/L 22-29 Anion Gap (test code = Anion 13 mmol/L 7-16 Gap) BUN (test code = BUN) 7.50 mg/dL 6.00-20.00 Creatinine Level (test code 0.90 mg/dL 0.70-1.20 = Creatinine Level) BUN/Creat Ratio (test code = 8 N BUN/Creat Ratio) Glucose Level (test code = 83 mg/dL 70-115 Glucose Level) Calcium Level (test code = 9.4 mg/dL 8.3-10.5 Calcium Level) Alk Phos (test code = Alk 92 U/L 40-129 Phos) Bilirubin Total (test code = 0.4 mg/dL 0.1-0.9 Bilirubin Total) Albumin Level (test code = 4.7 g/dL 3.5-5.2 Albumin Level) Protein Total (test code = 7.9 g/dL 6.4-8.3 Protein Total) ALT (test code = ALT) 17 U/L 1-41 AST (test code = AST) See Comments U/L 1-40 N Sp ecimen hemolyzed. AST 28 Globulin (test code = 3.2 g/dL 2.9-3.1 H Globulin) A/G Ratio (test code = A/G 1.5 ratio N Ratio) Lipase [id number] 14:41:50 Test Item Value Reference Range Interpretation Comments Lipase Level (test code = Lipase 27 U/L 13-60 Level) Comprehensive Metabolic [id number] 14:41:50 Test Item Value Reference Range Interpretation [...] [facility] [employer], [email or web address] v Comprehensive Metabolic [id number] 14:41:50 Test Item Value Reference Range Interpretation [...] [email or web address] v Urinalysis with Culture, if [id number] 14:13:35 Test Item Value Reference Range Interpretation [...] UA Micro Ind?) rule GL_SJM_UA_MICRO _IND Urinalysis [id number] 14:13:34 Test Item Value Reference Range Interpretation Comments UA WBC (test code = UA WBC) 0-5 0-5 UA RBC (test code = UA RBC) 0-5 0-5 UA Bacteria (test code = UA Few A Bacteria) UA Squam Epithelial (test code = UA 0-5 Squam Epithelial) UA Mucous (test code = UA Mucous) Moderate A Complete Blood Count with [id number] 13:47:22 Test Item Value Reference Range Interpretation [...] code = IPF) 0 % N Automated [id number] 13:47:22 Test Item Value Reference Range Interpretation Comments Neutro Auto (test code = Neutro 74.2 % 36.0-70.0 H Auto) Lymph Auto (test code = Lymph Auto) 15.2 % 12.0-44.0 Nolan Auto (test code = Nolan Auto) 9.0 % 0.0-11.0 Eos, Auto (test code = Eos, Auto) 1.1 % 0.0-7.0 Basophil Auto (test code = Basophil 0.2 % 0.0-2.0 Auto) Neutro Absolute (test code = Neutro 7.1 x10 1.6-7.4 Absolute) Lymph Absolute (test code = Lymph 1.46 x10 .50-4.60 Absolute) Nolan Absolute (test code = Nolan .86 x10 .00-1.20 Absolute) Eos Absolute (test code = Eos 0.11 x10 0.00-0.74 Absolute) Baso Absolute (test code = Baso 0.02 x10 0.00-0.21 Absolute) IG [id number] 13:47:22 Test Item Value Reference Range Interpretation Comments IG (test code = IG) 0.3 % 0.0-5.0 IG Abs (test code = IG Abs) 0 x10 N
[2022-02-26 22:12] LABS: Absolute Lymphocytes (CBC) 0.5 K/uL (0.7-4.9); Lymphocytes % 5.8 % (15.3-44.8); MCV 77.1 fL (80-100); MPV 8.8 fL (7.6-11.3); RBC Red Blood Cell Count 5.58 M/uL (4.33-5.43)
[2022-02-26 22:28] LABS: Potassium 3.7 mmol/L (3.5-5.1)
[2022-02-26 22:29] LABS: Troponin High Sensitivity 55.6 pg/mL (<58.9)
[2022-02-27] MEDS ORDERED: IPRATROPIUM BROM 0.5MG/2.5ML ONE (00:31)
[2022-02-27] MEDS ORDERED: ALBUTEROL 2.5 MG/3 ML NEB SOL ONE (00:31)
--- NOTE | 2022-02-27 00:51 | ER ---
Nurse's Notes [facility] Name: Jose Rafael Stevenson Age: 26 yrs Sex: Male : 1995 Arrival Date: 02/26/2022 Time: 21:18 Bed 10 Private MD: Diagnosis: Acute upper respiratory infection, unspecified Presentation: 02/26 22:04 Chief complaint: Patient states: C/o chest pain, vomiting, cough, and body aches for ll3 the past 2 days. Coronavirus screen: Vaccine status: Patient reports being unvaccinated. cough unrelated to allergies, shortness of breath, vomiting. Ebola Screen: No symptoms or risks identified at this time. Initial Sepsis Screen: Does the patient meet any 2 criteria? Systolic BP < 90 mmHg. No. Patient's initial sepsis screen is negative. Does the patient have a suspected source of infection? No. Patient's initial sepsis screen is negative. Risk Assessment: Do you want to hurt yourself or someone else? Patient reports no desire to harm self or others. Onset of symptoms was February 24, 2022. 22:04 Method Of Arrival: Ambulatory ll3 22:04 Acuity: DOMO 3 ll3 Triage Assessment: 22:07 General: Appears uncomfortable, Behavior is calm, cooperative, Reports feeling ill for ll3 1-2 days. Pain: Complains of pain in xiphoid area Pain does not radiate. Pain currently is 8 out of 10 on a pain scale. Quality of pain is described as pressure, Pain began 1 day ago. Is continuous. Neuro: Level of Consciousness is awake, alert, obeys commands, Oriented to person, place, time, situation. Cardiovascular: Patient's skin is warm and dry. Rhythm is sinus rhythm Chest pain is described as mild, quality is pressure, is located in anterior substernal area. Respiratory: Reports shortness of breath cough that is Respiratory effort is even, unlabored, Respiratory pattern is regular, symmetrical. GI: Reports vomiting, Patient currently denies nausea. Derm: Skin is pink, warm \T\ dry. Historical: - Allergies: 22:07 No Known Allergies; ll3 - Home Meds: 22:07 None [Active]; ll3 - PMHx: 22:07 None; ll3 - PSHx: 22:07 None; ll3 - Immunization history:: Client reports having NOT received the Covid vaccine. - Social history:: Smoking status: Patient reports the use of cigarette tobacco products, Patient uses street drugs, marijuana. Screenin:09 Abuse screen: Denies threats or abuse. Abuse screen: Denies injuries from another. ll3 Nutritional screening: No deficits noted. Tuberculosis screening: No symptoms or risk factors identified. Fall Risk None identified. Assessment: 22:09 General: See triage assessment. Pain: Complains of pain in chest. ll3 02/27 00:31 Reassessment: No changes from previously documented assessment. Patient and/or family ll3 updated on plan of care and expected duration. Pain level reassessed. Patient is alert, oriented x 3, equal unlabored respirations, skin warm/dry/pink. Vital Signs: 02/26 22:04 BP 142 / 97; Pulse 105; Resp 20; Temp 100.0; Pulse Ox 95% on R/A; Weight 145.15 kg; ll3 Height 6 ft. 3 in. (190.50 cm) (R); Pain 8/10; 22:18 BP 151 / 95; Pulse 102; Resp 24; Pulse Ox 95% on R/A; mh5 02/27 00:31 BP 154 / 75; Pulse 93; Resp 16; Pulse Ox 100% ; ll3 02/26 22:04 Body Mass Index 40.00 (145.15 kg, 190.50 cm) ll3 ED Course: 02/26 21:18 Patient arrived in ED. jj6 21:24 Ervin Fernadnez is PHCP. jl9 21:24 Leonard Byrd DO is Attending Physician. jl9 21:43 Inserted saline lock: 20 gauge in right antecubital area, using aseptic technique. eh3 Blood collected. 21:44 Taiwo Velarde, YUDY is Primary Nurse. ll3 22:07 Triage completed. ll3 22:07 Arm band placed on. Patient placed in an exam room, on a stretcher, on quality assurance monitor, ll3 on pulse oximetry. EKG completed in triage. Results shown to MD. 22:09 No provider procedures requiring assistance completed. Patient maintains SpO2 ll3 saturation greater than 95% on room air. 22:09 Patient has correct armband on for positive identification. Bed in low position. Call ll3 light in reach. Side rails up X 1. Client placed on continuous cardiac and pulse oximetry monitoring. NIBP monitoring applied. 02/27 00:14 Chest Single View In Process Unspecified. EDMS 01:10 IV discontinued, intact, bleeding controlled, No redness/swelling at site. Pressure 3 dressing applied. Administered Medications: 00:31 Drug: DuoNeb (albuterol 2.5 mg, ipratropium 0.5 mg) (3:1) (2.5 mg - 0.5 mg) 6 ml Route: ll3 Nebulizer; 01:10 Follow up: Response: No adverse reaction; Marked relief of symptoms ll3 Medication: 01:10 VIS not applicable for this client. ll3 Outcome: 00:50 Discharge ordered by jl9 01:09 Discharged to home ambulatory. 3 01:09 Condition: stable 01:09 Discharge instructions given to patient, Instructed on discharge instructions, follow up and referral plans. medication usage, Demonstrated understanding of instructions, follow-up care, medications, Prescriptions given X 2. 01:10 Patient left the ED. 3 Signatures: Dispatcher [employer] EDMA Keyla Gallego 5 Deana Herrera Lynsea, RN RN 3 Katerin Johnson RN RN [email or web address] Ervin Fernandez9 Corrections: (The following items were deleted from the chart) 02/26 21:32 21:24 Chief complaint: eh3 3
--- NOTE | 2022-02-27 00:51 | EDPHYS ---
Physician Documentation [facility] Name: Jose Rafael Stevenson Age: 26 yrs Sex: Male : 1995 Arrival Date: 02/26/2022 Time: 21:18 Bed 10 Private MD: ED Physician Leonard Byrd HPI: 02/26 23:51 This 26 yrs old Black Male presents to ER via Ambulatory with complaints of Chest jl9 Tightness an cough. . 23:51 Onset: The symptoms/episode began/occurred 2 day(s) ago. Associated signs and symptoms: jl9 Pertinent positives: chest pain, cough. Modifying factors: The patient symptoms are alleviated by nothing, the patient symptoms are aggravated by nothing. The patient has not experienced similar symptoms in the past. Historical: - Allergies: 22:07 No Known Allergies; ll3 - Home Meds: 22:07 None [Active]; ll3 - PMHx: 22:07 None; ll3 - PSHx: 22:07 None; ll3 - Immunization history:: Client reports having NOT received the Covid vaccine. - Social history:: Smoking status: Patient reports the use of cigarette tobacco products, Patient uses street drugs, marijuana. ROS: 23:52 Constitutional: Negative for fever, chills, and weight loss, Eyes: Negative for injury, jl9 pain, redness, and discharge, ENT: Negative for injury, pain, and discharge, Neck: Negative for injury, pain, and swelling, Cardiovascular: Negative for chest pain, palpitations, and edema. 23:52 Abdomen/GI: Negative for abdominal pain, nausea, vomiting, diarrhea, and constipation, Back: Negative for injury and pain, : Negative for injury, bleeding, discharge, and swelling, MS/Extremity: Negative for injury and deformity, Skin: Negative for injury, rash, and discoloration, Neuro: Negative for headache, weakness, numbness, tingling, and seizure, Psych: Negative for depression, anxiety, suicide ideation, homicidal ideation, and hallucinations, Allergy/Immunology: Negative for hives, rash, and allergies, Endocrine: Negative for neck swelling, polydipsia, polyuria, polyphagia, and marked weight changes, Hematologic/Lymphatic: Negative for swollen nodes, abnormal bleeding, and unusual bruising. 23:52 Cardiovascular: Positive for chest pain. 23:52 Respiratory: Positive for cough. Exam: 23:52 Constitutional: This is a well developed, well nourished patient who is awake, alert, jl9 and in no acute distress. Head/Face: Normocephalic, atraumatic. Eyes: Pupils equal round and reactive to light, extra-ocular motions intact. Lids and lashes normal. Conjunctiva and sclera are non-icteric and not injected. Cornea within normal limits. Periorbital areas with no swelling, redness, or edema. ENT: Mucous membranes moist. Neck: Trachea midline, no thyromegaly or masses palpated, and no cervical lymphadenopathy. Supple, full range of motion without nuchal rigidity, or vertebral point tenderness. No Meningismus. Chest/axilla: Normal chest wall appearance and motion. Nontender with no deformity. No lesions are appreciated. Cardiovascular: Regular rate and rhythm with a normal S1 and S2. No gallops, murmurs, or rubs. Normal PMI, no JVD. No pulse deficits. 23:52 Abdomen/GI: Soft, non-tender, with normal bowel sounds. No distension or tympany. No guarding or rebound. No evidence of tenderness throughout. Back: No spinal tenderness. No costovertebral tenderness. Full range of motion. Skin: Warm, dry with normal turgor. Normal color with no rashes, no lesions, and no evidence of cellulitis. MS/ Extremity: Pulses equal, no cyanosis. Neurovascular intact. Full, normal range of motion. Neuro: Awake and alert, GCS 15, oriented to person, place, time, and situation. Cranial nerves II-XII grossly intact. Motor strength 5/5 in all extremities. Sensory grossly intact. Cerebellar exam normal. Normal gait. Psych: Awake, alert, with orientation to person, place and time. Behavior, mood, and affect are within normal limits. 23:52 Respiratory: Breath sounds: + upper airway congestion. Vital Signs: 22:04 BP 142 / 97; Pulse 105; Resp 20; Temp 100.0; Pulse Ox 95% on R/A; Weight 145.15 kg; ll3 Height 6 ft. 3 in. (190.50 cm) (R); Pain 8/10; 22:18 BP 151 / 95; Pulse 102; Resp 24; Pulse Ox 95% on R/A; mh5 02/27 00:31 BP 154 / 75; Pulse 93; Resp 16; Pulse Ox 100% ; ll3 02/26 22:04 Body Mass Index 40.00 (145.15 kg, 190.50 cm) 3 MDM: 02/26 21:27 Patient medically screened. [facility] 02/27 00:51 Data reviewed: vital signs, nurses notes. Counseling: I had a detailed discussion with [facility] the patient and/or guardian regarding: the historical points, exam findings, and any diagnostic results supporting the discharge/admit diagnosis, lab results, the need for outpatient follow up, to return to the emergency department if symptoms worsen or persist or if there are any questions or concerns that arise at home. 02/26 21:28 Order name: SARS-COV-2 RT PCR (Document "Date of Onset" if Symptomatic) [facility] 02/26 22:04 Order name: Basic Metabolic Panel; Complete Time: 23:51 [facility] 02/26 22:04 Order name: Troponin High Sensitivity; Complete Time: 23:51 [facility] 02/26 21:28 Order name: EKG; Complete Time: 23:47 [facility] 02/26 21:28 Order name: Cardiac monitoring; Complete Time: 21:32 [facility] 02/26 22:04 Order name: CBC with Automated Diff; Complete Time: 23:51 [facility] 02/26 22:09 Order name: COVID 19 CPL [facility] 02/26 22:11 Order name: SARS-COV-2 RT PCR; Complete Time: 23:51 [facility] 02/26 23:38 Order name: Chest Single View [facility] 02/26 21:28 Order name: EKG - Nurse/Tech; Complete Time: 21:39 [facility] 02/26 21:28 Order name: IV Saline Lock; Complete Time: 21:43 [facility] 02/26 21:28 Order name: Labs collected and sent; Complete Time: 21:43 [facility] 02/26 21:28 Order name: O2 Per Protocol; Complete Time: 21:32 [facility] 02/26 21:28 Order name: O2 Sat Monitoring; Complete Time: 21:32 [facility] Administered Medications: 00:31 Drug: DuoNeb (albuterol 2.5 mg, ipratropium 0.5 mg) (3:1) (2.5 mg - 0.5 mg) 6 ml Route: 3 Nebulizer; 01:10 Follow up: Response: No adverse reaction; Marked relief of symptoms ll3 Disposition: 09:15 Co-signature as Attending Physician, Leonard Byrd DO I was immediately available on-site ms3 in the emergency department for consultation in the care of the patient. Disposition Summary: 02/27/22 00:50 Discharge Ordered Location: Home jl9 Condition: Stable jl9 Diagnosis - Acute upper respiratory infection, unspecified jl9 Followup: jl9 - With: Private Physician - When: 1 - 2 days - Reason: Recheck today's complaints, Continuance of care, Re-evaluation by your physician Discharge Instructions: - Discharge Summary Sheet jl9 - Upper Respiratory Infection, Adult jl9 Forms: - Medication Reconciliation Form jl9 - Thank You Letter jl9 - Antibiotic Education jl9 - Prescription Opioid Use jl9 Prescriptions: - albuterol sulfate 90 mcg/actuation Inhalation HFA aerosol inhaler - inhale 2 puff by INHALATION route every 4-6 hours As needed; 18 gram; Refills: jl9 0, Product Selection Permitted - azithromycin 250 mg Oral tablet - take 2 tablet by ORAL route once daily for 1 day then 1 tablet (250 mg) by oral jl9 route once daily for 4 days; 6 tablet; Refills: 0, Product Selection Permitted Signatures: Dispatcher [employer] EDMS Leonard Byrd DO DO ms3 Taiwo Velarde RN RN 3 Ervin Fernandez jl9 Corrections: (The following items were deleted from the chart) 00:01 02/26 23:47 BASIC METABOLIC PANEL+C.LAB.BRZ ordered. EDMS EDMS 02/27 00:01 02/26 23:47 CBC+H.LAB.BRZ ordered. EDMS EDMS 02/27 00:01 02/26 23:47 Troponin High Sensitivity+C.LAB.BRZ ordered. EDMS EDMS 02/27 00:15 02/26 23:47 Chest Single View+RAD.RAD.BRZ ordered. EDMS EDMS
[2022-02-27 03:48] VITALS: TEMP 100
[2022-02-27 03:52] VITALS: BP 154/75; O2SAT 100
--- NOTE | 2022-02-27 15:19 | EKG ---
Test Date: 2022-02-26 Test Time: 21:36:52 Valve Grinder: LL MEASUREMENT RESULTS: Intervals: Rate: 90 GA: 134 QRSD: 72 QT: 334 QTc: 408 [place]: P: 49 GA: 134 QRS: 71 T: 38 INTERPRETIVE STATEMENTS: Normal sinus rhythm with sinus arrhythmia Nonspecific T wave abnormality Abnormal ECG No previous ECG available for comparison Electronically Signed On 02-27-22 15:18:13 CDT by Magdaleno Maciel
--- NOTE | 2022-02-27 15:38 | RAD REPORT ---
EXAM DESCRIPTION: RAD - Chest Single View - 02/27/2022 12:12 am CLINICAL HISTORY: The patient is 26 years old and is Male; chest pain TECHNIQUE: Frontal view of the chest. COMPARISON: No relevant prior studies available. FINDINGS: Lungs: Mildly prominent interstitial and vascular markings. No consolidation. Pleural space: Mild blunting of the right costophrenic angle which may indicate a small right ple ural effusion. No pneumothorax. Heart: Unremarkable. Mediastinum: Unremarkable. Bones/joints: Unremarkable. IMPRESSION: 1. Mildly prominent interstitial and vascular markings. No consolidation. 2. Mild blunting of the right costophrenic angle which may indicate a small right pleural effusion. Electronically signed by: Joe Quijano MD 02/27/2022 12:26 AM CDT Due to temporary technical issues with the PACS/Fluency reporting system, reports are being signed by the in house radiologists without review as a courtesy to insure prompt reporting. The interpreting radiologist is fully responsible for the content of the report.
== END 2022-02-27 01:10 | disposition home or self-care (01) ==
LOC: ER 21:01
DX: J06.9 Acute upper respiratory infection, unspecified (principal); Z20.822 Contact with and (suspected) exposure to COVID-19
CPT/HCPCS: 36415; 71045; 80048; 84484; 85025; 93005; 94640; 99285; U0003

== ENCOUNTER 2022-09-16 00:51 | Emergency (ER) | payer SELFPAY ==
--- OUTSIDE RECORDS SUMMARY | 2022-09-16 00:54 | XMS REPORT | Continuity of Care Document ---
:1995 Author Organization [facility] t Address [address] [place] [address] Care Team Providers Name Role Phone Asked, No Pcp Primary Care Physician Unavailable KATERIN GUEVARA Attending Clinician Unavailable Katerin Guevara MD Attending Clinician [phone] Problems Condition Condition Condition Status Onset Resolution Last Treating Co mments Source Name Details Category Date Date Treatment Clinician Date Closed Closed Disease Active Overview: Univer s fracture fracture 10-03 Formattin ity of of part of of part of 00:00: g of this [place] radius radius 00 note Medical with ulna with ulna might be Br anch different from the original. 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 ICD10 Diagnosis Term Clinical Trial Data Manager Utility Attention Attention Disease Active 2006-07 Overview: Univers deficit deficit 07-30 Formattin ity o f hyperactiv hyperactiv 00:00: g of this [place] ity ity 00 note Medical disorder disorder might be Bran ch (ADHD) (ADHD) different from the original. 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 ICD10 Diagnosis Term Clinical Trial Data Manager Utility Allergies, Adverse Reactions, Alerts Allergy Allergy Status Severity Reaction(s) Onset Inactive Treating Comm ents Source Name Type Date Date Clinician CEFPODOX DRUG Active Rash 2006-07 Univers TRISH INGREDI 07-30 ity of PROXETIL 00:00: [place] 00 [facility] Cefpodox Propensi Active Rash 2006-07 Univer s trish ty to 07-30 ity of Proxetil adverse 00:00: [place] reaction 00 Medical s Branch Social History Social Habit Start Date Stop Date Quantity Comments Source Exposure to 2022-09-03 2022-09-13 Not sure [facility] SARS-CoV-2 (event) 00:00:00 15:30:00 [facility] Sex Assigned At [birth year] [facility] 00:00:00 00:00:00 Smoking Status Start Date Stop Date Source Tobacco smoking consumption unknown [facility] Medications Ordered Filled Start Stop Current Ordering Indication Dosage Frequency Signature Comments Components Source Medication Medication Date Date Medication? Clinician (SIG) Name Name aspirin Yes 325mg 325 mg, Univer s tablet 325 3-14 Oral, ity of mg 14:00: DAILY, [place] [id number] First dose Medical on [facility] 09/14/22 at 0900, Until Discontinu ed, Routine No known 2018-07 No No known Metho di medications 2-[address] 17:12: [facility] l ESCITALOPRA 2006-07 Yes 1 tab po Un katty M 10 MG 1-29 QAM ity of ORAL TAB 00:00: [place] 00 [facility] ADDERALL 15 2006-07 Yes 3 tabs po U nivers MG ORAL TAB 1-29 BID ity of 00:00: [address] Vital Signs Vital Name Observation Time Observation Value Comments Source Systolic blood 2022-09-13 22:00:00 149 mm[Hg] Univer sity of pressure [facility] Diastolic blood 2022-09-13 22:00:00 101 mm[Hg] Unive rsity of pressure [facility] Heart rate 2022-09-13 22:00:00 71 /min Universi ty of [facility] Respiratory rate 2022-09-13 22:00:00 17 /min Univ ersity of [facility] Oxygen saturation in 2022-09-13 22:00:00 96 /min University Arterial blood by [facility] Pulse oximetry Branch Body temperature 2022-09-13 19:33:00 37.17 [facility] Body weight 2022-09-13 19:33:00 145.151 kg [facility] Procedures Procedure Date / Time Performed Performing Clinician Sourc e TROPONIN I 2022-09-13 21:09:00 Katerin Guevara [facility] XR CHEST 2 VW 2022-09-13 20:10:30 Katerin Guevara [facility] TROPONIN I 2022-09-13 20:01:00 Paola Katerin [facility] COMP. METABOLIC PANEL 2022-09-13 20:01:00 Katerin Guevara [facility] ([id number]) [facility] CBC WITH DIFF 2022-09-13 20:01:00 Katerin Guevara [facility] N-TERMINAL PRO-BNP 2022-09-13 20:01:00 Katerin Guevara [facility] HB ECG ROUTINE & 2022-09-13 19:39:19 Katerin Guevara [facility] RHYTHM STRIP [facility] NOTICE OF PRIVACY 2022-09-13 19:27:06 Doctor Unassigned, No [facility] PRACTICES Name [facility] Encounters Start End Encounter Admission Attending Care Care Encounter Source Date/Time Date/Time Type Type Clinicians Facility Department ID 2022-09-13 2022-09-13 Emergency X [facility]IDE [facility] ERT [id number] Univers 14:35:00 18:24:00 , KATERIN [facility] 2022-09-13 2022-09-13 Emergency [facility] [id number] Univers 14:35:00 18:24:00 , Katerin KIMBALL [id number] i ty Malena GARCÍA [id number] [facility] [id number] [facility] [address] Branch 2018-02-09 2018-02-23 [facility] [id number] [place] 00:00:00 00:00:00 [facility] 2017-12-03 2018-01-11 [facility] [id number] [place] 00:00:00 00:00:00 [facility] 2016-12-21 2016-12-28 Outpatient [facility] [id number] [place] 00:00:00 00:00:00 [facility] Results Test Description Test Time Test Comments Results Result Comments Source TROPONIN I 2022-09-13 22:08:44 Test Item Value Reference Range Interpretation Comme nts TROPONIN I (test code = 3708959920) 0.010 ng/mL <=0.034 WILLY (test code = WILLY) Reference (Normal) Range (defined by the 99th percentile reference limit): <= 0.034 ng/mL Note: Cardiac troponin begins to rise 3-4 hours after the onset of ischemia. Repeat in 4-6 hours if the sample was drawn within 3-4 hours of the onset of the symptom and found normal. Diagnosis of myocardial injury is made with acute changes in cTn concentrations with at least one serial sample above the 99th percentile upper reference limit (URL), taken together with the patient's clinical presentation. Biotin has been reported to cause a negative bias, interpret results relative to patient's use of biotin. Lab Interpretation (test code = Normal 95699-7) [facility] [id number] 12:55:57 C Urine Added by GL_SJM_UA_CUL_INDNo growth at 24 hours. No growth at [address] Abdomen and Pelvis w/ [id number] 15:14:34Patient: TERESA SINGH Date/Time06/13/2019 15:08 CSTReason for [...] more the following dose reduction techniques is ut ilized: Use of iterative reconstruction, automated exposure control, [...] No significant abnormality.IMPRESSION:1. Normal right lower quadrant appendixEx am Date/Time06/13/2019 15:08 CSTReport2. No acute intra-abdominal findings identified by CT criteria. Final Dictated by: MD Troncoso Eniola FDictated DT/TM: 06/13/2019 3:10 pmSigned by: MD Troncoso Eniola FSigned (Electronic Signature): 06/13/2019 3:14 pmComprehensive Metabolic Panel 2019-06-13 14:41:50 Test Item Value [...] AST (test code = See Comments U/L -40 N Specime n AST) hemolyzed. AST 28 Globulin (test code 3.2 g/dL 2.9-3.1 H = Globulin) A/G Ratio (test code 1.5 ratio N = A/G Ratio) Lipase [id number] 14:41:50 Test Item Value Reference Range Interpretation Comments Lipase Level (test code = Lipase 27 U/L 13-60 Level) Comprehensive Metabolic [id number] 14:41:50 Test Item Value Reference Range Interpretation [...] [facility], [email or web address] v Comprehensive Metabolic [id number] 14:41:50 Test Item Value Reference Range Interpretation [...] [email or web address] v Urinalysis with Culture, if [id number] 14:13:35 Test Item Value Reference Range Interpretation [...] UA Micro Ind?) rule GL_SJM_UA_MICRO _IND Urinalysis [id number] 14:13:34 Test Item Value Reference Range Interpretation Comments UA WBC (test code = UA WBC) 0-5 0-5 UA RBC (test code = UA RBC) 0-5 0-5 UA Bacteria (test code = UA Few A Bacteria) UA Squam Epithelial (test code = UA 0-5 Squam Epithelial) UA Mucous (test code = UA Mucous) Moderate A Complete Blood Count with [id number] 13:47:22 Test Item Value Reference Range Interpretation [...] code = IPF) 0 % N Automated [id number] 13:47:22 Test Item Value Reference Range Interpretation Comments Neutro Auto (test code = Neutro 74.2 % 36.0-70.0 H Auto) Lymph Auto (test code = Lymph Auto) 15.2 % 12.0-44.0 [place] Auto (test code = [place] Auto) 9.0 % 0.0-11.0 Eos, Auto (test code = Eos, Auto) 1.1 % 0.0-7.0 Basophil Auto (test code = Basophil 0.2 % 0.0-2.0 Auto) Neutro Absolute (test code = Neutro 7.1 x10 1.6-7.4 Absolute) Lymph Absolute (test code = Lymph 1.46 x10 .50-4.60 Absolute) [place] Absolute (test code = [place] .86 x10 .00-1.20 Absolute) Eos Absolute (test code = Eos 0.11 x10 0.00-0.74 Absolute) Baso Absolute (test code = Baso 0.02 x10 0.00-0.21 Absolute) IG [id number] 13:47:22 Test Item Value Reference Range Interpretation Comments IG (test code = IG) 0.3 % 0.0-5.0 IG Abs (test code = IG Abs) 0 x10 N
[2022-09-16] MEDS ORDERED: DIPHENHYDRAMINE 25 MG TAB/CAP ONE (01:36)
[2022-09-16] MEDS ORDERED: FAMOTIDINE 20 MG TAB ONE (01:37)
[2022-09-16] MEDS ORDERED: predniSONE 20 MG TAB ONE (01:37)
[2022-09-16] MEDS ORDERED: METHYLPREDNISOLONE 125 MG INJ ONE (02:36)
[2022-09-16] MEDS ORDERED: DIPHENHYDRAMINE 50 MG/ML VIAL ONE (02:36)
[2022-09-16] MEDS ORDERED: NA CHLORIDE 0.9% 1,000 ML ONE (02:36)
[2022-09-16 02:43] LABS: Absolute Lymphocytes (CBC) 2.5 K/uL (0.7-4.9); Hematocrit 42.9 % (39.6-49.0); Lymphocytes % 25.8 % (15.3-44.8); MCV 80.4 fL (80-100); MPV 9.2 fL (7.6-11.3); RBC Red Blood Cell Count 5.34 M/uL (4.33-5.43)
[2022-09-16 02:55] LABS: Potassium 3.7 mmol/L (3.5-5.1)
--- NOTE | 2022-09-16 03:17 | EDPHYS ---
Physician Documentation [facility] Name: Jose Rafael Stevenson Age: 27 yrs Sex: Male : 1995 Arrival Date: 09/16/2022 Time: 00:54 Bed 6 Private MD: ED Physician Ming Tobias HPI: 09/16 01:30 This 27 yrs old Male presents to ER via Ambulatory with complaints of Hand Swelling. cp 01:30 The patient or guardian reports swelling, itching, redness. The complaints affect the cp left hand and right hand. Context: resulted from an unknown cause. 01:30 Onset: The symptoms/episode began/occurred after work tonight, about 3 hours ago. cp Associated signs and symptoms: Pertinent negatives: fever, shortness of breath, difficulty swallowing, tightness of throat and/or chest. Severity of symptoms: in the emergency department the symptoms are unchanged. Historical: - Allergies: 01:05 No Known Allergies; bb - Home Meds: 01:05 None [Active]; bb - PMHx: 01:05 None; bb - PSHx: 01:05 Myringotomy and insertion of tympanic ventilation tube; bb - Immunization history:: Client reports having NOT received the Covid vaccine. - Social history:: Smoking status: Patient reports the use of cigarette tobacco products. ROS: 01:33 Constitutional: Negative for body aches, chills, fever, poor PO intake. cp 01:33 Eyes: Negative for injury, pain, redness, and discharge. cp 01:33 ENT: Negative for drainage from ear(s), ear pain, sore throat, difficulty swallowing, difficulty handling secretions, hoarseness. 01:33 Cardiovascular: Negative for chest pain, palpitations. 01:33 Respiratory: Negative for cough, shortness of breath, wheezing. 01:33 Skin: Positive for rash, swelling, of the left hand and right hand, itching. 01:33 Neuro: Negative for altered mental status, dizziness, headache, weakness. 01:33 All other systems are negative. Exam: 01:37 Constitutional: The patient appears in no acute distress, alert, awake, non-toxic, well cp developed, well nourished, obese. 01:37 Head/Face: Normocephalic, atraumatic. cp 01:37 Eyes: Periorbital structures: appear normal, Conjunctiva: normal, no exudate, no injection, Sclera: no appreciated abnormality, Lids and lashes: appear normal, bilaterally. 01:37 ENT: External ear(s): are unremarkable, Nose: is normal, Mouth: Lips: moist, Oral mucosa: pink and intact, moist, Posterior pharynx: is normal, airway is patent, no erythema, no exudate. 01:37 Cardiovascular: Rate: normal, Rhythm: regular, Edema: is not appreciated. 01:37 Respiratory: the patient does not display signs of respiratory distress, Respirations: normal, no use of accessory muscles, no retractions, labored breathing, is not present, Breath sounds: are clear throughout, no decreased breath sounds, no stridor, no wheezing. 01:37 Abdomen/GI: Exam negative for discomfort, distension, guarding, Inspection: abdomen appears normal. 01:37 Skin: mild swelling, mild erythema, mild urticaria noted to palms and dorsum of hands. Vital Signs: 01:03 BP 149 / 104; Pulse 69; Resp 16 S; Temp 98.2(O); Pulse Ox 95% on R/A; Weight 145.15 kg bb (R); Height 6 ft. 2 in. (R); Pain 6/10; 02:38 BP 143 / 77; Pulse 67; Resp 17; Pulse Ox 98% on R/A; lg3 01:03 Body Mass Index 41.09 (145.15 kg, 187.96 cm) bb 01:03 Pain Scale: Adult bb MDM: 01:02 Patient medically screened. cp 02:00 Differential diagnosis: cellulitis, contact allergy, dermatitis, anaphylaxis. cp 09/16 02:11 Order name: IV; Complete Time: 02:38 cp 09/16 02:11 Order name: BMP; Complete Time: 02:56 cp 09/16 02:56 Interpretation: Normal except: NA 135; GLUC 107; GFR 89. cp 09/16 02:11 Order name: CBC with Diff; Complete Time: 02:56 cp 09/16 02:56 Interpretation: Normal except: MCH 26.6. cp Administered Medications: 01:31 CANCELLED (Physician Discretion): diphenhydrAMINE IVP 50 mg IVP once cp 01:35 Drug: diphenhydrAMINE PO 50 mg Route: PO; lg3 01:35 Drug: Famotidine PO 20 mg Route: PO; lg3 01:36 Drug: predniSONE PO 60 mg Route: PO; lg3 02:38 Drug: NS 0.9% IV 1000 ml Route: IV; Rate: 1 bolus; Site: right antecubital; lg3 02:38 Drug: diphenhydrAMINE IVP 25 mg Route: IVP; Site: right antecubital; lg3 02:38 Drug: MethylPrednisoLONE IVP 60 mg Route: IVP; Site: right antecubital; lg3 Disposition Summary: 09/16/22 03:17 Discharge Ordered Location: Home cp Problem: new cp Symptoms: have improved cp Condition: Stable cp Diagnosis - Allergy, unspecified cp Followup: cp - With: Private Physician - When: 2 - 3 days - Reason: Recheck today's complaints Forms: - Medication Reconciliation Form cp - Thank You Letter cp - Antibiotic Education cp - Prescription Opioid Use cp Signatures: Dispatcher [employer] Flori Panda RN RN bb Alex Howell PA PA cp Jennifer Little RN RN lg3 Corrections: (The following items were deleted from the chart) 01:31 01:29 diphenhydrAMINE IVP 50 mg IVP once ordered. cp cp
--- NOTE | 2022-09-16 03:17 | ER ---
Nurse's Notes [facility] Name: Jose Rafael Stevenson Age: 27 yrs Sex: Male : 1995 Arrival Date: 09/16/2022 Time: 00:54 Bed 6 Private MD: Diagnosis: Allergy, unspecified Presentation: 09/16 01:03 Chief complaint: Patient states: he works at [employer] and when he got off both hands are bb swollen and itching and reddened. Coronavirus screen: At this time, the client does not indicate any symptoms associated with coronavirus-19. Ebola Screen: No symptoms or risks identified at this time. Initial Sepsis Screen: Does the patient meet any 2 criteria? No. Patient's initial sepsis screen is negative. Does the patient have a suspected source of infection? No. Patient's initial sepsis screen is negative. Risk Assessment: Do you want to hurt yourself or someone else? Patient reports no desire to harm self or others. Onset of symptoms was September 16, 2022. 01:03 Method Of Arrival: Ambulatory bb 01:03 Acuity: DOMO 3 bb Historical: - Allergies: 01:05 No Known Allergies; bb - Home Meds: 01:05 None [Active]; bb - PMHx: 01:05 None; bb - PSHx: 01:05 Myringotomy and insertion of tympanic ventilation tube; bb - Immunization history:: Client reports having NOT received the Covid vaccine. - Social history:: Smoking status: Patient reports the use of cigarette tobacco products. Screenin:36 [facility] ED Fall Risk Assessment (Adult) History of falling in the last 3 months, lg3 including since admission No falls in past 3 months (0 pts). Abuse screen: Denies threats or abuse. Denies injuries from another. Nutritional screening: No deficits noted. Tuberculosis screening: No symptoms or risk factors identified. Assessment: 01:36 General: Appears in no apparent distress. comfortable, Behavior is calm, cooperative. lg3 Pain: Denies pain. Neuro: No deficits noted. Esteban Agitation-Sedation Scale (RASS): 0 - Alert and Calm Level of Consciousness is awake, alert, obeys commands, Oriented to person, place, time, situation. Cardiovascular: No deficits noted. Denies chest pain, shortness of breath, Capillary refill < 3 seconds Clubbing of nail beds is absent JVD is absent Patient's skin is warm and dry. Respiratory: No deficits noted. Airway is patent Respiratory effort is even, unlabored, Respiratory pattern is regular, symmetrical, Denies shortness of breath. GI: No deficits noted. No signs and/or symptoms were reported involving the gastrointestinal system. Abdomen is round non-distended. : No deficits noted. No signs and/or symptoms were reported regarding the genitourinary system. EENT: No deficits noted. No signs and/or symptoms were reported regarding the EENT system. Derm: Skin is intact, is healthy with good turgor, Skin is dry, Skin is normal, Skin temperature is warm Reports itching. Musculoskeletal: Swelling present in right hand and left hand. 02:38 Reassessment: Patient appears in no apparent distress at this time. No changes from lg3 previously documented assessment. Patient and/or family updated on plan of care and expected duration. Pain level reassessed. Patient is alert, oriented x 3, equal unlabored respirations, skin warm/dry/pink. Vital Signs: 01:03 BP 149 / 104; Pulse 69; Resp 16 S; Temp 98.2(O); Pulse Ox 95% on R/A; Weight 145.15 kg bb (R); Height 6 ft. 2 in. (R); Pain 6/10; 02:38 BP 143 / 77; Pulse 67; Resp 17; Pulse Ox 98% on R/A; lg3 01:03 Body Mass Index 41.09 (145.15 kg, 187.96 cm) bb 01:03 Pain Scale: Adult bb ED Course: 00:54 Patient arrived in ED. ag3 01:01 Alex Howell PA is PHCP. cp 01:01 Ming Tobias MD is Attending Physician. cp 01:05 Triage completed. bb 01:05 Arm band placed on Patient placed in an exam room, on a stretcher. Family accompanied bb patient. 01:36 Patient has correct armband on for positive identification. Placed in gown. Bed in low lg3 position. Call light in reach. Side rails up X 1. Client placed on continuous cardiac and pulse oximetry monitoring. NIBP monitoring applied. Door closed. Noise minimized. Warm blanket given. Family accompanied patient. 01:36 No provider procedures requiring assistance completed. lg3 02:37 Inserted saline lock: 20 gauge in right antecubital area, using aseptic technique. lg3 Blood collected. 02:38 CBC with Diff Sent. lg3 02:38 BMP Sent. lg3 Administered Medications: 01:31 CANCELLED (Physician Discretion): diphenhydrAMINE IVP 50 mg IVP once cp 01:35 Drug: diphenhydrAMINE PO 50 mg Route: PO; lg3 01:35 Drug: Famotidine PO 20 mg Route: PO; lg3 01:36 Drug: predniSONE PO 60 mg Route: PO; lg3 02:38 Drug: NS 0.9% IV 1000 ml Route: IV; Rate: 1 bolus; Site: right antecubital; lg3 02:38 Drug: diphenhydrAMINE IVP 25 mg Route: IVP; Site: right antecubital; lg3 02:38 Drug: MethylPrednisoLONE IVP 60 mg Route: IVP; Site: right antecubital; lg3 Medication: 01:36 VIS not applicable for this client. lg3 Outcome: 03:17 Discharge ordered by MD. tobar Signatures: Flori Gomez RN RN bb Alex Howell PA PA cp Gomez, Alice Jennifer Taylor, RN RN lg3 Corrections: (The following items were deleted from the chart) 02:37 01:36 Patient did not have IV access during this emergency room visit. lg3 lg3 02:44 01:03 Acuity: DOMO 5 bb alejandra
[2022-09-16 11:48] VITALS: TEMP 98.2
[2022-09-16 11:50] VITALS: BP 143/77; O2SAT 98
== END 2022-09-16 03:27 | disposition home or self-care (01) ==
LOC: ER 00:51
DX: R21 Rash and other nonspecific skin eruption (principal); T78.40XA Allergy, unspecified, initial encounter
CPT/HCPCS: 36415; 80048; 85025; 96374; 96375; 99284; J1200; J2930; J7030; J7512

== ENCOUNTER 2022-11-03 14:11 | Emergency (ER) | payer SELFPAY ==
--- OUTSIDE RECORDS SUMMARY | 2022-11-03 14:18 | XMS REPORT | Continuity of Care Document ---
:1995 Author Organization [facility] t Address [address] [facility]. [address] [place] [id number] Care Team Providers Name Role Phone Asked, No Pcp Primary Care Physician Unavailable Problems This patient has no known problems. Allergies, Adverse Reactions, Alerts This patient has no known allergies or adverse reactions. Social History Social Habit Start Date Stop Date Quantity Comments Source Gender identity [facility] Sexual orientation Method [facility] History of Social 2019-06-17 2019-06-17 [facility] function 00:00:00 00:00:00 Sex Ass[birth year] At [birth year] Met [facility] 00:00:00 00:00:00 Smoking Status Start Date Stop Date Source Tobacco smoking consumption unknown [facility] Medications Ordered Filled Start Stop Current Ordering Indication Dosage Frequency Signature Comments Components Source Medication Medication Date Date Medication? Clinician (SIG) Name Name No known 2018-07 No No known Metho di medications 2-[address] 17:12: [facility] 02 l Procedures This patient has no known procedures. Results Test Description Test Time Test Comments Results Result Sourc e Comments Urine Culture 2019-06-14 C Urine [...] = A/G 1.5 ratio N Ratio) Lipase [id number] 14:41:50 Test Item Value Reference Range Interpretation Comments Lipase Level (test code = Lipase 27 U/L 13-60 Level) Comprehensive Metabolic [id number] 14:41:50 Test Item Value Reference Range Interpretation [...] [facility], [email or web address] v Comprehensive Metabolic [id number] 14:41:50 Test Item Value Reference Range Interpretation [...] [email or web address] v Urinalysis with Culture, if [id number] 14:13:35 Test Item Value Reference Range Interpretation [...] UA Micro Ind?) rule [id number] _IND Urinalysis [id number] 14:13:34 Test Item Value Reference Range Interpretation Comments UA WBC (test code = UA WBC) 0-5 0-5 UA RBC (test code = UA RBC) 0-5 0-5 UA Bacteria (test code = UA Few A Bacteria) UA Squam Epithelial (test code = UA 0-5 Squam Epithelial) UA Mucous (test code = UA Mucous) Moderate A Complete Blood Count with [id number] 13:47:22 Test Item Value Reference Range Interpretation [...] code = IPF) 0 % N Automated [id number] 13:47:22 Test Item Value Reference Range Interpretation Comments Neutro Auto (test code = Neutro 74.2 % 36.0-70.0 H Auto) Lymph Auto (test code = Lymph Auto) 15.2 % 12.0-44.0 Dukes Auto (test code = Dukes Auto) 9.0 % 0.0-11.0 Eos, Auto (test code = Eos, Auto) 1.1 % 0.0-7.0 Basophil Auto (test code = Basophil 0.2 % 0.0-2.0 Auto) Neutro Absolute (test code = Neutro 7.1 x10 1.6-7.4 Absolute) Lymph Absolute (test code = Lymph 1.46 x10 .50-4.60 Absolute) Dukes Absolute (test code = Dukes .86 x10 .00-1.20 Absolute) Eos Absolute (test code = Eos 0.11 x10 0.00-0.74 Absolute) Baso Absolute (test code = Baso 0.02 x10 0.00-0.21 Absolute) IG [id number] 13:47:22 Test Item Value Reference Range Interpretation Comments IG (test code = IG) 0.3 % 0.0-5.0 IG Abs (test code = IG Abs) 0 x10 N
--- NOTE | 2022-11-03 15:27 | RAD REPORT ---
EXAM DESCRIPTION: CT - Head Brain Wo Cont - 11/03/2022 3:16 pm CLINICAL HISTORY: Headache COMPARISON: none TECHNIQUE: Computed axial tomography of the head was obtained. IV contrast was not requested. All CT scans are performed using dose optimization technique as appropriate and may include automated exposure control or mA/KV adjustment according to patient size. FINDINGS: An intracranial bleed is not seen The ventricles are normal in caliber No significant hypodense areas within the brain visualized No extra-axial fluid collection is noted. Fluid within the sinuses/ mastoids is not seen IMPRESSION: No acute intracranial abnormality is seen If patient's symptoms persist MRI of the brain would be recommended
[2022-11-03] MEDS ORDERED: METOCLOPRAMIDE 10 MG/2mL INJ ONE (17:04)
[2022-11-03] MEDS ORDERED: NA CHLORIDE 0.9% 1,000 ML ONE (17:05)
[2022-11-03] MEDS ORDERED: DIPHENHYDRAMINE 50 MG/ML VIAL ONE (17:05)
[2022-11-03] MEDS ORDERED: KETOROLAC 30 MG/ML INJ ONE (17:05)
[2022-11-03 17:08] LABS: Absolute Lymphocytes (CBC) 1.8 K/uL (0.7-4.9); Hematocrit 48.7 % (39.6-49.0); MCV 79.5 fL (80-100); MPV 9.5 fL (7.6-11.3); RBC Red Blood Cell Count 6.12 M/uL (4.33-5.43)
[2022-11-03 17:31] LABS: Albumin 4.2 g/dL (3.4-5.0); Bilirubin Total 0.3 mg/dL (0.2-1.0); Protein, Total 8.6 g/dL (6.4-8.2)
--- NOTE | 2022-11-03 18:12 | RAD REPORT ---
EXAM DESCRIPTION: CTHead angio11/03/2022 5:59 pm CLINICAL HISTORY: Headache and dizziness COMPARISON: None TECHNIQUE: 100 cc Isovue [address] angiogram of the head was obtained. 3D MIPS reconstruction performed. All CT scans are performed using dose optimization technique as appropriate and may include automated exposure control or mA/KV adjustment according to patient size. FINDINGS: The basilar, internal carotid, anterior cerebral, middle cerebral and posterior cerebral a rteries appear unremarkable An aneurysm is not seen A significant stenosis is not noted. IMPRESSION: No acute abnormality is displayed
--- NOTE | 2022-11-03 18:18 | ER ---
Nurse's Notes [facility] Name: Jose Rafael Stevenson Age: 27 yrs Sex: Male : 1995 Arrival Date: 11/03/2022 Time: 14:11 Bed 12 Private MD: Diagnosis: Essential (primary) hypertension;Headache Presentation: 11/03 14:50 Chief complaint: Patient states: frontal headache x 2 days ago, denies nausea/vomiting, aa5 reports some dizziness today. Coronavirus screen: At this time, the client does not indicate any symptoms associated with coronavirus-19. Ebola Screen: Patient denies travel to an Ebola-affected area in the 21 days before illness onset. Initial Sepsis Screen: Does the patient meet any 2 criteria? No. Patient's initial sepsis screen is negative. Does the patient have a suspected source of infection? No. Patient's initial sepsis screen is negative. Risk Assessment: Do you want to hurt yourself or someone else? Patient reports no desire to harm self or others. Onset of symptoms was November 2022. 14:50 Acuity: DOMO 3 aa5 14:50 Method Of Arrival: Ambulatory aa5 Historical: - Allergies: 14:52 Pt states "an old antibiotic that is not used anymore"; aa5 - Home Meds: 14:52 None [Active]; aa5 - PMHx: 14:52 None; aa5 - PSHx: 14:52 Myringotomy and insertion of tympanic ventilation tube; aa5 - Immunization history:: Adult Immunizations unknown. - Social history:: Smoking status: Patient reports the use of cigarette tobacco products, denies chronic smoking, but will smoke occasionally. - Family history:: not pertinent. Screenin:30 [facility] ED Fall Risk Assessment (Adult) History of falling in the last 3 months, ko1 including since admission No falls in past 3 months (0 pts) Confusion or Disorientation No (0 pts) Intoxicated or Sedated No (0 pts) Impaired Gait No (0 pts) Mobility Assist Device Used No (0 pt) Altered Elimination No (0 pt) Score/Fall Risk Level 0 - 2 = Low Risk Oriented to surroundings, Maintained a safe environment, Educated pt \\T\\ family on fall prevention, incl call for assistance when getting out of bed, Assessed \\T\\ reinforced patient's understanding of fall precautions, Provided non-skid footwear, Hourly rounding (assess needs \\T\\ fall precautionary measures) done, Used ambulatory aids as needed (educated on \\T\\ assisted with), Used gait belt as appropriate. Abuse screen: Denies threats or abuse. Denies injuries from another. Nutritional screening: No deficits noted. Tuberculosis screening: No symptoms or risk factors identified. Assessment: 16:30 General: Appears in no apparent distress. comfortable, Behavior is calm, cooperative, ko1 appropriate for age. Pain: Complains of pain in right frontal area and left frontal area and forehead and top of head. Neuro: No deficits noted. Cardiovascular: No deficits noted. Respiratory: No deficits noted. GI: No deficits noted. : No deficits noted. EENT: No deficits noted. Derm: No deficits noted. Musculoskeletal: No deficits noted. Vital Signs: 14:50 BP 150 / 119; Pulse 105; Resp 20 S; Temp 98.9(O); Pulse Ox 98% on R/A; Weight 142.88 kg aa5 (R); Height 6 ft. 2 in. (R); 17:50 BP 140 / 89; Pulse 85; Resp 18; Pulse Ox 99% ; ko1 18:05 BP 154 / 101; Pulse 88; Resp 18; Pulse Ox 99% ; ko1 18:30 BP 150 / 82; Pulse 88; Resp 18; Pulse Ox 99% ; ko1 14:50 Body Mass Index 40.44 (142.88 kg, 187.96 cm) aa5 [place] Coma Score: 17:36 Eye Response: spontaneous(4). Motor Response: obeys commands(6). Verbal Response: fili oriented(5). Total: 15. ED Course: 14:18 Patient arrived in ED. am2 14:50 Arm band placed on. aa5 14:52 Triage completed. aa5 15:02 Alex Abreu MD is Attending Physician. fili 15:17 CT Head Brain wo Cont In Process Unspecified. EDMS 16:30 Patient has correct armband on for positive identification. Bed in low position. Call ko1 light in reach. Side rails up X 1. Pulse ox on. NIBP on. 16:30 No provider procedures requiring assistance completed. ko1 16:46 Bhavna Masterson, YUDY is Primary Nurse. ko1 16:55 Inserted saline lock: 20 gauge in right antecubital area, using aseptic technique. ko1 Blood collected. 16:57 Comprehensive Metabolic Panel Sent. ko1 16:57 CBC with Diff Sent. ko1 18:01 CT Head Angio In Process Unspecified. EDMN 18:17 Davin Gruber MD is Referral Physician. [facility] 18:30 IV discontinued, intact, bleeding controlled, No redness/swelling at site. Pressure ko1 dressing applied. Administered Medications: 16:58 Drug: NS 0.9% IV 1000 ml Route: IV; Rate: 1 bolus; Site: right antecubital; ko1 16:58 Drug: metoCLOPramide IVP 10 mg Route: IVP; Site: right antecubital; ko1 17:05 Drug: diphenhydrAMINE IVP 50 mg Route: IVP; Site: right antecubital; ko1 17:05 Drug: Ketorolac IVP 30 mg Route: IVP; Site: right antecubital; ko1 17:50 Drug: Norvasc PO 10 mg Route: PO; ko1 Medication: 16:30 VIS not applicable for this client. ko1 Outcome: 18:17 Discharge ordered by . [facility] 18:30 Discharged to home ambulatory, with family. ko1 18:30 Condition: improved 18:30 Discharge instructions given to patient, family, Instructed on discharge instructions, follow up and referral plans. medication usage, Demonstrated understanding of instructions, follow-up care, medications, Prescriptions given X 3. 18:37 Patient left the ED. ko1 Signatures: Dispatcher [employer] EDMN Alex Abreu MD MD cha Calderon, Audri RN RN viv5 Magdalena Baptiste Kathy, RN RN ko1 Corrections: (The following items were deleted from the chart) 14:53 14:52 Allergies: No Known Allergies; nahum sidhu
--- NOTE | 2022-11-03 18:18 | EDPHYS ---
Physician Documentation [facility] Name: Jose Rafael Stevenson Age: 27 yrs Sex: Male : 1995 Arrival Date: 11/03/2022 Time: 14:11 Bed 12 Private MD: ED Physician Alex Abreu HPI: 11/03 17:33 This 27 yrs old Male presents to ER via Ambulatory with complaints of fili Headache. 17:33 The patient complains of pain to the top of head, forehead, left frontal area and right fili frontal area. The patient describes the headache as aching. Onset: The symptoms/episode began/occurred 2 day(s) ago. Associated signs and symptoms: The patient has no apparent associated signs or symptoms. Severity of symptoms: At its worst the pain was mild, moderate, in the emergency department the pain is unchanged. Headache History: The patient has had previous headaches and this one is similar to previous episodes. The symptoms are alleviated by nothing. the symptoms are aggravated by nothing. The patient has experienced similar episodes in the past, a few times. Historical: - Allergies: 14:52 Pt states "an old antibiotic that is not used anymore"; aa5 - Home Meds: 14:52 None [Active]; aa5 - PMHx: 14:52 None; aa5 - PSHx: 14:52 Myringotomy and insertion of tympanic ventilation tube; aa5 - Immunization history:: Adult Immunizations unknown. - Social history:: Smoking status: Patient reports the use of cigarette tobacco products, denies chronic smoking, but will smoke occasionally. - Family history:: not pertinent. ROS: 17:35 Constitutional: Negative for fever, chills, and weight loss, Eyes: Negative for injury, fili pain, redness, and discharge, ENT: Negative for injury, pain, and discharge, Neck: Negative for injury, pain, and swelling, Cardiovascular: Negative for chest pain, palpitations, and edema, Respiratory: Negative for shortness of breath, cough, wheezing, and pleuritic chest pain, Abdomen/GI: Negative for abdominal pain, nausea, vomiting, diarrhea, and constipation, Back: Negative for injury and pain, : Negative for injury, bleeding, discharge, and swelling, MS/Extremity: Negative for injury and deformity, Skin: Negative for injury, rash, and discoloration, Psych: Negative for depression, anxiety, suicide ideation, homicidal ideation, and hallucinations, Allergy/Immunology: Negative for hives, rash, and allergies, Endocrine: Negative for neck swelling, polydipsia, polyuria, polyphagia, and marked weight changes, Hematologic/Lymphatic: Negative for swollen nodes, abnormal bleeding, and unusual bruising. 17:35 Neuro: Positive for headache, of the forehead. Exam: 17:35 Constitutional: This is a well developed, well nourished patient who is awake, alert, fili and in no acute distress. Head/Face: Normocephalic, atraumatic. Eyes: Pupils equal round and reactive to light, extra-ocular motions intact. Lids and lashes normal. Conjunctiva and sclera are non-icteric and not injected. Cornea within normal limits. Periorbital areas with no swelling, redness, or edema. ENT: Nares patent. No nasal discharge, no septal abnormalities noted. Tympanic membranes are normal and external auditory canals are clear. Oropharynx with no redness, swelling, or masses, exudates, or evidence of obstruction, uvula midline. Mucous membranes moist. Neck: Trachea midline, no thyromegaly or masses palpated, and no cervical lymphadenopathy. Supple, full range of motion without nuchal rigidity, or vertebral point tenderness. No Meningismus. Chest/axilla: Normal chest wall appearance and motion. Nontender with no deformity. No lesions are appreciated. Cardiovascular: Regular rate and rhythm with a normal S1 and S2. No gallops, murmurs, or rubs. Normal PMI, no JVD. No pulse deficits. Respiratory: Lungs have equal breath sounds bilaterally, clear to auscultation and percussion. No rales, rhonchi or wheezes noted. No increased work of breathing, no retractions or nasal flaring. Abdomen/GI: Soft, non-tender, with normal bowel sounds. No distension or tympany. No guarding or rebound. No evidence of tenderness throughout. Back: No spinal tenderness. No costovertebral tenderness. Full range of motion. Male : Normal genitalia with no discharge or lesions. Skin: Warm, dry with normal turgor. Normal color with no rashes, no lesions, and no evidence of cellulitis. MS/ Extremity: Pulses equal, no cyanosis. Neurovascular intact. Full, normal range of motion. Neuro: Awake and alert, GCS 15, oriented to person, place, time, and situation. Cranial nerves II-XII grossly intact. Motor strength 5/5 in all extremities. Sensory grossly intact. Cerebellar exam normal. Normal gait. Psych: Awake, alert, with orientation to person, place and time. Behavior, mood, and affect are within normal limits. 17:35 Neck: External neck: is normal, no acute changes, C-spine: appears grossly normal, no acute changes, ROM/movement: is normal, no acute changes, pain, is not appreciated, limited range of motion, is not appreciated, Meningeal signs: are not present, Kernig's sign is negative, Brudzinski's sign is negative, nuchal rigidity, is not appreciated. Vital Signs: 14:50 BP 150 / 119; Pulse 105; Resp 20 S; Temp 98.9(O); Pulse Ox 98% on R/A; Weight 142.88 kg aa5 (R); Height 6 ft. 2 in. (R); 17:50 BP 140 / 89; Pulse 85; Resp 18; Pulse Ox 99% ; ko1 18:05 BP 154 / 101; Pulse 88; Resp 18; Pulse Ox 99% ; ko1 18:30 BP 150 / 82; Pulse 88; Resp 18; Pulse Ox 99% ; ko1 14:50 Body Mass Index 40.44 (142.88 kg, 187.96 cm) aa5 [place] Coma Score: 17:36 Eye Response: spontaneous(4). Motor Response: obeys commands(6). Verbal Response: fili oriented(5). Total: 15. MDM: 15:02 Patient medically screened. fili 17:36 Differential diagnosis: cluster headache, hypertensive headache, hypoglycemia, fili hyponatremia, intracerebral hemorrhage, meningitis, migraine, neoplasm, subarachnoid bleed, subdural hematoma, temporal arteritis, tension headache, traumatic injuries, trigeminal neuralgia. Data reviewed: vital signs, nurses notes, lab test result(s), radiologic studies, CT scan. Consideration of Admission/Observation Escalation of care including admission/observation considered. I considered the following discharge prescriptions or medication management in the emergency department Medications were administered in the Emergency Department. See MAR. Independent interpretation of the following test(s) in the Emergency Department CT Scan: My interpretation is NEG. Test considered but Not performed: MRI: NO MRI BRAIN. Historians other than the Patient: NONE. Care significantly affected by the following chronic conditions: NONE. 11/03 15:05 Order name: CBC with Diff; Complete Time: 17:38 [facility] 11/03 15:05 Order name: Comprehensive Metabolic Panel; Complete Time: 17:38 [facility] 11/03 15:05 Order name: Urinalysis w/ reflexes [facility] 11/03 15:05 Order name: UDS [facility] 11/03 15:05 Order name: CT Head Brain wo Cont; Complete Time: 16:49 [facility] 11/03 17:16 Order name: CT Head Angio; Complete Time: 18:17 [facility] 11/03 15:05 Order name: Oxygen: 2 liters; Complete Time: 16:57 [facility] Administered Medications: 16:58 Drug: NS 0.9% IV 1000 ml Route: IV; Rate: 1 bolus; Site: right antecubital; ko1 16:58 Drug: metoCLOPramide IVP 10 mg Route: IVP; Site: right antecubital; ko1 17:05 Drug: diphenhydrAMINE IVP 50 mg Route: IVP; Site: right antecubital; ko1 17:05 Drug: Ketorolac IVP 30 mg Route: IVP; Site: right antecubital; ko1 17:50 Drug: Norvasc PO 10 mg Route: PO; ko1 Disposition Summary: 11/03/22 18:17 Discharge Ordered Location: Home fili Problem: new fili Symptoms: have improved fili Condition: Stable fili Diagnosis - Essential (primary) hypertension fili - Headache fili Followup: fili - With: Private Physician - When: 2 - 3 days - Reason: Recheck today's complaints, Continuance of care, Re-evaluation by your physician Followup: fili - With: - When: 2 - 3 days - Reason: Recheck today's complaints, Continuance of care, Re-evaluation by your physician Discharge Instructions: - Discharge Summary Sheet fili - General Headache Without Cause fili - Hypertension, Adult fili - Hypertension, Adult, [id number] fili - How to Take Your Blood Pressure, [id number]-ln-[id number] fili - General Headache Without Cause, [id number] fili - Managing Your Hypertension fili Forms: - Medication Reconciliation Form fili - Thank You Letter fili - Antibiotic Education fili - Prescription Opioid Use fili Prescriptions: - Norvasc 5 mg Oral Tablet - take 1 tablet by ORAL route once daily; 20 tablet; Refills: 0, Product fili Selection Permitted - Zofran 4 mg Oral Tablet - take 1 tablet by ORAL route every 12 hours As needed; 20 tablet; Refills: 0, [facility] [place] Product Selection Permitted - Diclofenac Sodium 75 mg Oral tablet,delayed release (DR/EC) - take 1 tablet by ORAL route 2 times per day; 2 tablet; Refills: 0, Product fili Selection Permitted Signatures: Dispatcher [employer] Alex Steele MD MD cha Calderon, Audri RN RN aa5 Bhavna Masterson RN RN ko1 Corrections: (The following items were deleted from the chart) 14:53 14:52 Allergies: No Known Allergies; viv5 aa5
[2022-11-03] MEDS ORDERED: AMLODIPINE 10 MG TAB ONE (18:21)
[2022-11-03 18:47] LABS: Urine Bilirubin NEGATIVE (Negative); Urine Blood Negative (Negative); Urine Clarity Clear (Clear); Urine Color Colorless (Yellow); Urine Glucose NEGATIVE (Negative); Urine Protein NEGATIVE (Negative); Urine Urobilinogen Normal (Normal)
[2022-11-03 18:48] LABS: Specific Gravity > 1.030 (1.005-1.030)
[2022-11-03 19:01] VITALS: TEMP 98.9
[2022-11-03 19:09] LABS: Barbiturates NEGATIVE (NEGATIVE); Benzodiazepines NEGATIVE (NEGATIVE); Cocaine NEGATIVE (NEGATIVE); METHAMPHETAM NEGATIVE (NEGATIVE); Methadone NEGATIVE (NEGATIVE); Opiates NEGATIVE (NEGATIVE); Phencyclidine NEGATIVE (NEGATIVE); THC Cannibis NEGATIVE (NEGATIVE)
[2022-11-03 19:20] VITALS: BP 150/82; O2SAT 99
== END 2022-11-03 18:37 | disposition home or self-care (01) ==
LOC: ER 14:11
DX: I10 Essential (primary) hypertension (principal)
CPT/HCPCS: 36415; 70450; 70496; 80053; 80307; 81003; 85025; 96374; 96375; 99284; J1200; J2765; J7030; Q9967

== ENCOUNTER 2023-06-13 17:51 | Emergency (ER) | payer SELFPAY ==
--- NOTE | 2023-06-13 19:20 | RAD REPORT ---
EXAM DESCRIPTION: David Single View06/13/2023 7:05 pm CLINICAL HISTORY: Chest pain COMPARISON: 2021 FINDINGS: The lungs appear clear of acute infiltrate. The heart is normal size IMPRESSION: No acute abnormalities displayed
--- NOTE | 2023-06-13 20:14 | RAD REPORT ---
EXAM DESCRIPTION: RAD - Thoracic Spine Ap/Lat - 06/13/2023 7:05 pm CLINICAL HISTORY: Back pain FINDINGS: No fracture or dislocation is visualized
--- NOTE | 2023-06-13 20:32 | EDPHYS ---
Physician Documentation [facility] Name: Jose Rafael Stevenson Age: 28 yrs Sex: Male : 1995 Arrival Date: 06/13/2023 Time: 17:51 Bed 12 Private MD: ED Physician Hunter Patel HPI: 06/13 18:03 This 28 yrs old Male presents to ER via Ambulatory with complaints of 4 wiggins cp accident. 18:03 The patient presents with pain that is acute. The symptoms are located in the thoracic cp area. Onset: The symptoms/episode began/occurred today. The pain does not radiate. Associated signs and symptoms: Pertinent positives: chest pain, Pertinent negatives: abdominal pain, constipation, fever, headache, hematuria, incontinence, numbness, tingling, vomiting, weakness. 18:03 The problem was sustained Patient reports he was pushing four wiggins onto back of cp truck when he lost control and it pushed him to the ground causing him to land on back. Reports four wiggins did not roll on top of him or fall onto him. Modifying factors: the patient symptoms are aggravated by deep breaths. Severity of symptoms: in the emergency department the symptoms are unchanged, despite home interventions. Historical: - Allergies: 18:01 Unknown antibiotic; cm10 - PSHx: 18:01 Myringotomy and insertion of tympanic ventilation tube; cm10 - Immunization history:: Adult Immunizations unknown. - Social history:: Smoking status: Patient denies any tobacco usage or history of. ROS: 18:10 Constitutional: Negative for body aches, chills, fever, poor PO intake, cp 18:10 Eyes: Negative for injury, pain, redness, and discharge, cp 18:10 ENT: Negative for drainage from ear(s), ear pain, sore throat, difficulty swallowing, difficulty handling secretions, 18:10 Cardiovascular: Positive for chest pain, Negative for edema, palpitations, 18:10 Respiratory: Negative for cough, shortness of breath, wheezing, 18:10 Abdomen/GI: Negative for abdominal pain, nausea, vomiting, and diarrhea, constipation, bowel incontinence, 18:10 Back: Positive for pain at rest, pain with movement, of the thoracic area, 18:10 : Negative for urinary symptoms, bladder incontinence, testicular pain 18:10 Neuro: Negative for altered mental status, dizziness, headache, loss of consciousness, numbness, syncope, weakness, 18:10 All other systems are negative, Exam: 18:15 Constitutional: The patient appears in no acute distress, alert, awake, cp non-diaphoretic, non-toxic, well developed, well nourished, obese, 18:15 Head/Face: Normocephalic, atraumatic. cp 18:15 Eyes: Periorbital structures: appear normal, Conjunctiva: normal, no exudate, no injection, Sclera: no appreciated abnormality, Lids and lashes: appear normal, bilaterally, 18:15 ENT: External ear(s): are unremarkable, Nose: is normal, Mouth: Lips: moist, Oral mucosa: pink and intact, moist, Posterior pharynx: is normal, airway is patent, no erythema, no exudate, 18:15 Neck: ROM/movement: is normal, is supple, without pain, no range of motions limitations, 18:15 Chest/axilla: Inspection: normal, Palpation: is normal, no crepitus, no tenderness, 18:15 Cardiovascular: Rate: normal, Rhythm: regular, Edema: is not appreciated, JVD: is not appreciated, 18:15 Respiratory: the patient does not display signs of respiratory distress, Respirations: normal, no use of accessory muscles, no retractions, labored breathing, is not present, Breath sounds: are clear throughout, no decreased breath sounds, no stridor, no wheezing, 18:15 Abdomen/GI: Inspection: obese Palpation: abdomen is soft and non-tender, in all quadrants, 18:15 Back: pain, that is moderate, of the thoracic area, ROM is painful, with all movement, CVA tenderness, is absent, muscle spasm, is not present, 18:15 Musculoskeletal/extremity: Extremities: all appear grossly normal, with no appreciated pain with palpation, 18:15 Neuro: Orientation: to person, place \T\ time. Mentation: is normal, Motor: moves all fours, strength is normal, Sensation: is normal, Vital Signs: 17:59 BP 150 / 106; Pulse 92; Resp 18; Temp 98.4; Pulse Ox 100% ; Weight 154.22 kg; Height 6 cm10 ft. 2 in. ; Pain 10/10; 21:06 BP 139 / 89; Pulse 91; Resp 17; Pulse Ox 100% on R/A; me1 17:59 Body Mass Index 43.65 (154.22 kg, 187.96 cm) cm10 17:59 Pain Scale: Adult cm10 MDM: 18:04 Patient medically screened. cp 19:00 Differential diagnosis: vertebral fracture, contusion, rib fracture, multiple trauma. cp 20:31 Data reviewed: vital signs, nurses notes, radiologic studies, plain films, and as a cp result, I will discharge patient. 20:31 Test considered but Not performed: CT: chest and abdomen/pelvis. Counseling: I had a cp detailed discussion with the patient and/or guardian regarding the historical points, exam findings, and any diagnostic results supporting the discharge/admit diagnosis, radiology results, to return to the emergency department if symptoms worsen or persist or if there are any questions or concerns that arise at home. Response to treatment: the patient's symptoms have markedly improved after treatment, and as a result, I will discharge patient. 06/13 18:03 Order name: XRAY Chest (1 view); Complete Time: 20:30 cp 06/13 20:30 Interpretation: Report review. cp 06/13 18:03 Order name: XRAY Thoracic Spine (Ap/lat); Complete Time: 20:30 cp 06/13 20:30 Interpretation: Report reviewed. cp Administered Medications: 20:27 Not Given (med not available): [id number] mg PO once me1 20:33 Drug: Cyclobenzaprine PO 10 mg PO once Route: PO; me1 21:02 Follow up: Response: No adverse reaction; Pain is decreased me1 20:34 Drug: Ketorolac IM 60 mg IM once Route: IM; Site: right deltoid; me1 21:02 Follow up: Response: No adverse reaction; Pain is decreased me1 20:34 Drug: Acetaminophen PO 1000 mg PO once Route: PO; me1 21:02 Follow up: Response: No adverse reaction; Pain is decreased me1 Disposition: 06/14 08:58 Co-signature as Attending Physician, Hunter Patel MD I reviewed the patient's care rn provided by the Advanced Practice Provider and agree with the diagnosis and treatment plan. Disposition Summary: 06/13/23 20:32 Discharge Ordered Notes: Location: Home cp Problem: new cp Symptoms: have improved cp Condition: Stable cp Diagnosis - Fall on same level, unspecified cp - Dorsalgia, unspecified cp Followup: cp - With: Private Physician - When: 2 - 3 days - Reason: Recheck today's complaints Discharge Instructions: - Discharge Summary Sheet cp - Acute Back Pain, Adult cp Forms: - Work release form kl - Medication Reconciliation Form cp - Thank You Letter cp - Antibiotic Education cp - Prescription Opioid Use cp - Patient Portal Instructions cp - Leadership Thank You Letter cp Prescriptions: - Cyclobenzaprine 10 mg Oral Tablet - take 1 tablet ORAL route every 8 hours As needed; 30 tablet; Refills: 0, cp Product Selection Permitted - Diclofenac Sodium 75 mg Oral Tablet Sustained Release - take 1 tablet ORAL route 2 times per day; 30 tablet; Refills: 0, Product cp Selection Permitted Signatures: Dispatcher [employer] EDHunter Carballo MD MD rn Page, Corey, PA PA cp Martinez, Clarissa RN RN cm10 Nichole Avila RN RN me1
--- NOTE | 2023-06-13 20:32 | ER ---
Nurse's Notes [facility] Name: Jose Rafael Stevenson Age: 28 yrs Sex: Male : 1995 Arrival Date: 06/13/2023 Time: 17:51 Bed 12 Private MD: Diagnosis: Fall on same level, unspecified;Dorsalgia, unspecified Presentation: 06/13 17:59 Chief complaint: Patient states: was putting a four wiggins in the back of the truck, cm10 four wiggins rolled back and patient fell. Pt states that he is now having back pain. Pt states that he has pain with deep breaths. Coronavirus screen: Vaccine status: Patient reports being unvaccinated. Client denies travel out of the [place] in the last 14 days. Ebola Screen: Patient denies travel to an Ebola-affected area in the 21 days before illness onset. No symptoms or risks identified at this time. Initial Sepsis Screen: Does the patient meet any 2 criteria? No. Patient's initial sepsis screen is negative. Does the patient have a suspected source of infection? No. Patient's initial sepsis screen is negative. Risk Assessment: Do you want to hurt yourself or someone else? Patient reports no desire to harm self or others. Onset of symptoms was June 13, 2023. 17:59 Method Of Arrival: Ambulatory cm10 17:59 Acuity: DOMO 4 cm10 Triage Assessment: 18:01 General: Appears in no apparent distress. uncomfortable, Behavior is calm, cooperative. cm10 Pain: Complains of pain in back. Neuro: No deficits noted. Level of Consciousness is awake, alert, obeys commands, Oriented to person, place, time, situation. Respiratory: No deficits noted. Airway is patent Respiratory effort is even, unlabored, Respiratory pattern is regular, symmetrical. Musculoskeletal: No deficits noted. Range of motion: intact in all extremities, Reports pain in back. Historical: - Allergies: 18:01 Unknown antibiotic; cm10 - PSHx: 18:01 Myringotomy and insertion of tympanic ventilation tube; cm10 - Immunization history:: Adult Immunizations unknown. - Social history:: Smoking status: Patient denies any tobacco usage or history of. Screenin:00 [facility] ED Fall Risk Assessment (Adult) History of falling in the last 3 months, me1 including since admission Yes- single mechanical fall (1 pt) Confusion or Disorientation No (0 pts) Intoxicated or Sedated No (0 pts) Impaired Gait No (0 pts) Mobility Assist Device Used No (0 pt) Altered Elimination No (0 pt) Score/Fall Risk Level 0 - 2 = Low Risk Maintained a safe environment, Provided non-skid footwear, Hourly rounding (assess needs \T\ fall precautionary measures) done. Abuse screen: Denies threats or abuse. Nutritional screening: No deficits noted. Tuberculosis screening: No symptoms or risk factors identified. Assessment: 19:00 General: Appears uncomfortable, well groomed, well developed, well nourished, Behavior me1 is calm, cooperative, appropriate for age, Reports was putting a four wiggins in the back of the truck, four wiggins rolled back and patient fell. Pt states that he is now having back pain. Pt states that he has pain with deep breaths. Pain: Complains of pain in back Pain does not radiate. Pain currently is 8 out of 10 on a pain scale. Quality of pain is described as sharp, shooting, Pain began suddenly, Is continuous. Neuro: Level of Consciousness is awake, alert, obeys commands, Oriented to person, place, time, situation, Appropriate for age. Cardiovascular: Capillary refill < 3 seconds Patient's skin is warm and dry. Respiratory: Airway is patent Respiratory effort is even, unlabored, Respiratory pattern is regular, symmetrical. 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 Vital Signs: 17:59 BP 150 / 106; Pulse 92; Resp 18; Temp 98.4; Pulse Ox 100% ; Weight 154.22 kg; Height 6 cm10 ft. 2 in. ; Pain 10/10; 21:06 BP 139 / 89; Pulse 91; Resp 17; Pulse Ox 100% on R/A; me1 17:59 Body Mass Index 43.65 (154.22 kg, 187.96 cm) cm10 17:59 Pain Scale: Adult cm10 ED Course: 17:55 Patient arrived in ED. mr 17:57 Alex Howell PA is PHCP. cp 17:57 Hunter Patel MD is Attending Physician. cp 18:01 Triage completed. cm10 18:01 Arm band placed on Patient placed in waiting room. cm10 19:00 Patient has correct armband on for positive identification. Bed in low position. Call [facility] [place] in reach. Side rails up X 1. Provided Education on: POC. Verbalized understanding. . 19:00 No provider procedures requiring assistance completed. Patient did not have IV access me1 during this emergency room visit. 19:07 XRAY Chest (1 view) In Process Unspecified. EDMS 19:07 XRAY Thoracic Spine (Ap/lat) In Process Unspecified. EDMS 20:05 Ankush Cedillo, RN is Primary Nurse. 4 Administered Medications: 20:27 Not Given (med not available): [id number] mg PO once me1 20:33 Drug: Cyclobenzaprine PO 10 mg PO once Route: PO; me1 21:02 Follow up: Response: No adverse reaction; Pain is decreased me1 20:34 Drug: Ketorolac IM 60 mg IM once Route: IM; Site: right deltoid; me1 21:02 Follow up: Response: No adverse reaction; Pain is decreased me1 20:34 Drug: Acetaminophen PO 1000 mg PO once Route: PO; me1 21:02 Follow up: Response: No adverse reaction; Pain is decreased me1 Medication: 19:00 VIS not applicable for this client. de1 Outcome: 20:32 Discharge ordered by MD. cp 21:09 Discharged to home ambulatory, with friend, [facility] [place] 21:09 Condition: stable 21:09 Discharge instructions given to patient, friend, Instructed on discharge instructions, follow up and referral plans. medication usage, Demonstrated understanding of instructions, follow-up care, medications, Prescriptions given X 3, 21:09 Patient left the ED. de1 Signatures: Dispatcher [employer] EDCA BoyerTete, Reg Reg mr Alex Howell, SMOOTH PA cp Ankush Cedillo, RN RN 4 Lara Gallego RN RN 10 Nichole Avila RN RN de1 Corrections: (The following items were deleted from the chart) 20:05 17:59 Chief complaint: Patient states: was putting a four wiggins in the back of the 4 truck, four wiggins rolled back and patient fell. Pt states that he is now having back pain. Pt states that he has pain with deep breaths. cm10 21:03 17:59 Chief complaint: Patient states: was putting a four wiggins in the back of the de1 truck, four wiggins rolled back and patient fell. Pt states that he is now having back pain. Pt states that he has pain with deep breaths. [email or web address]
[2023-06-13] MEDS ORDERED: KETOROLAC 30 MG/ML INJ ONE (20:37)
[2023-06-13] MEDS ORDERED: ACETAMINOPHEN 500 MG TAB ONE (20:37)
[2023-06-13] MEDS ORDERED: CYCLOBENZAPRINE 10 MG TAB ONE (20:45)
[2023-06-13 21:30] VITALS: BP 139/89; TEMP 98.4; O2SAT 100
== END 2023-06-13 21:09 | disposition home or self-care (01) ==
LOC: ER 17:51
DX: M54.9 Dorsalgia, unspecified (principal); W18.30XA Fall on same level, unspecified, initial encounter
CPT/HCPCS: 71045; 72070; 96372; 99284

== ENCOUNTER 2024-04-26 11:02 | Emergency (ER) | payer SELFPAY ==
--- NOTE | 2024-04-26 12:09 | RAD REPORT ---
EXAMINATION: ONE VIEW CHEST XR CLINICAL INDICATION: CHEST PAIN TECHNIQUE: Frontal chest projection is submitted. Examination is limited by patient positioning and t echnique. COMPARISON: 06/13/2023 FINDINGS: The lungs are well inflated and clear. The heart is normal in size. No displaced fractures identified . IMPRESSION: No acute intrathoracic abnormalities.
[2024-04-26 12:26] LABS: Absolute Eosinophils 0.2 K/uL (0-0.5); Absolute Lymphocytes (CBC) 1.7 K/uL (0.7-4.9); Absolute Monocytes 0.5 K/uL (0.1-1.3); Absolute Neutrophil 6.2 K/uL (1.8-8.0); Basophils % 0.3 % (0-1.3); Eosinophils % 2.2 % (0-4.4); Hematocrit 41.8 % (39.6-49.0); Hemoglobin 13.7 g/dL (13.6-17.9); Lymphocytes % 20.2 % (15.3-44.8); MCH 26.6 pg (27.0-35.0); MCHC 32.9 g/dL (32.0-36.0); MCV 80.8 fL (80-100); MPV 9.3 fL (7.6-11.3); Monocytes % 5.5 % (3.3-12.3); Neutrophils % 71.8 % (41.7-73.7); Platelets 189 thou/uL (152-406); RBC Red Blood Cell Count 5.17 M/uL (4.33-5.43); Red Cell Distribution Width 14.3 % (12.1-15.2)
[2024-04-26 12:45] LABS: Albumin 3.6 g/dL (3.4-5.0); Albumin/Globulin Ratio 0.9 (1.1-1.8); Anion Gap 9.5 mEq/L (5.0-15.0); Bilirubin Total 0.3 mg/dL (0.2-1.0); Globulin 4.2 g/dL (2.3-3.5); Potassium 3.5 mEq/L (3.5-5.1); Protein, Total 7.8 g/dL (6.4-8.2)
[2024-04-26 12:48] LABS: Troponin High Sensitivity 95.6 pg/mL (<58.9)
[2024-04-26] MEDS ORDERED: ASPIRIN 81 MG CHEWABLE TABLET ONE (12:48)
[2024-04-26] MEDS ORDERED: HYDRALAZINE HCL 20 MG/ML VIAL ONE (13:12)
--- NOTE | 2024-04-26 13:58 | ER ---
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 "FELT LIKE SOMETHING SUDDENLY HIT ME IN MY CHEST". BP HIGH IN TRIAGE HAS BEEN TOLD HAS HTN DOES NOT TAKE MEDICATIONS AND DID NOT FOLLOWUP WITH PCP. Coronavirus screen: Client denies travel out of the [place] in the last 14 days. At this time, the client does not indicate any symptoms associated with coronavirus-19. Ebola Screen: Patient negative for fever greater than or equal to 101.5 degrees Fahrenheit, and additional compatible Ebola Virus Disease symptoms Patient denies exposure to infectious person. Patient denies travel to an Ebola-affected area in the 21 days before illness onset. No symptoms or risks identified at this time. Initial Sepsis Screen: Does the patient meet any 2 criteria? No. Patient's initial sepsis screen is negative. Does the patient have a suspected source of infection? No. Patient's initial sepsis screen is negative. Risk Assessment: Do you want to hurt yourself or someone else? Patient reports no desire to harm self or others. Onset of symptoms. Onset of symptoms was April 26, 2024. 11:09 Method Of Arrival: Ambulatory db 11:09 Acuity: DOMO 2 db Triage Assessment: 11:12 General: Appears in no apparent distress. comfortable, Behavior is calm, cooperative. db Pain: Complains of pain in chest Pain currently is 7 out of 10 on a pain scale. Cardiovascular: Reports chest pain, Capillary refill < 3 seconds Patient's skin is warm and dry. Respiratory: Airway is patent Respiratory effort is even, unlabored, Respiratory pattern is regular, symmetrical. Historical: - Allergies: 11:12 No Known Allergies; db - PMHx: 11:12 Hypertensive disorder; db - PSHx: 11:12 Myringotomy and insertion of tympanic ventilation tube; EAR TUBES (Myringotomy and db insertion of tympanic ventilation tube); - Immunization history:: Adult Immunizations unknown. - Infectious Disease History:: Denies. - Social history:: Smoking status: Reported history of juuling and/or vaping. Screenin:20 [facility] ED Fall Risk Assessment (Adult) History of falling in the last 3 months, db including since admission No falls in past 3 months (0 pts) Confusion or Disorientation No (0 pts) Intoxicated or Sedated No (0 pts) Impaired Gait No (0 pts) Mobility Assist Device Used No (0 pt) Altered Elimination No (0 pt) Score/Fall Risk Level 0 - 2 = Low Risk Oriented to surroundings, Maintained a safe environment, Educated pt \\T\\ family on fall prevention, incl call for assistance when getting out of bed, Assessed \\T\\ reinforced patient's understanding of fall precautions. Abuse screen: Denies threats or abuse. Denies injuries from another. Nutritional screening: No deficits noted. Tuberculosis screening: No symptoms or risk factors identified. Assessment: 12:47 Reassessment: Dr. Minor notified of critical lab value. Troponin 95.6. ss 13:18 General: Appears in no apparent distress. Behavior is calm, cooperative. Pain: db Complains of pain in chest Pain does not radiate. Pain began gradually, Alleviated by nothing. Neuro: Level of Consciousness is awake, alert, obeys commands, Oriented to person, place, time, situation, Moves all extremities. Full function Speech is normal, Facial symmetry appears normal. Cardiovascular: Reports chest pain, Denies diaphoresis, fatigue, lightheadedness, nausea, palpitations, shortness of breath, syncope, vomiting, Capillary refill < 3 seconds Patient's skin is warm and dry. Respiratory: Airway is patent Respiratory effort is even, unlabored, Respiratory pattern is regular, symmetrical, Breath sounds are clear bilaterally. Denies shortness of breath. GI: No signs and/or symptoms were reported involving the gastrointestinal system. : No signs and/or symptoms were reported regarding the genitourinary system. EENT: No signs and/or symptoms were reported regarding the EENT system. Derm: No signs and/or symptoms reported regarding the dermatologic system. Musculoskeletal: No signs and/or symptoms reported regarding the musculoskeletal system. 14:28 Reassessment: No changes from previously documented assessment. Patient and/or family tl4 updated on plan of care and expected duration. Pain level reassessed. Patient is alert, oriented x 3, equal unlabored respirations, skin warm/dry/pink. Pt denies any needs at this time. Family at bedside. Call white at bedside. Will continue to monitor. 15:43 Reassessment: No changes from previously documented assessment. Patient and/or family tl4 updated on plan of care and expected duration. Pain level reassessed. Patient is alert, oriented x 3, equal unlabored respirations, skin warm/dry/pink. is getting pt food, ok per Dr Minor. Pt denies any other needs at this time. Call white at bedside, will continue to monitor. 16:21 Reassessment: No changes from previously documented assessment. Patient and/or family tl4 updated on plan of care and expected duration. Pain level reassessed. Patient is alert, oriented x 3, equal unlabored respirations, skin warm/dry/pink. Pt eating dinner, denies any other needs at this time. Family at bedside. Call white at bedside, will continue to monitor. 17:26 Reassessment: No changes from previously documented assessment. Patient and/or family tl4 updated on plan of care and expected duration. Pain level reassessed. Patient is alert, oriented x 3, equal unlabored respirations, skin warm/dry/pink. Pt denies any needs. Family at bedside. Call white at bedside. Will continue to monitor. 18:55 Reassessment: Report to YUDY Marinelli at [facility]. Report to EMS. tl4 Vital Signs: 11:09 BP 157 / 115; Pulse 87; Resp 18; Temp 98.5; Pulse Ox 96% ; Weight 145.15 kg; Height 6 db ft. 1 in. ; 13:20 BP 135 / 105; Pulse 76; Resp 18; Pulse Ox 100% on R/A; Pain 4/10; db 13:45 BP 134 / 79; Pulse 71; Resp 15; Pulse Ox 100% on R/A; tl4 14:28 BP 149 / 91; Pulse 77; Resp 15; Pulse Ox 100% on R/A; tl4 15:00 BP 144 / 76; Pulse 91; Resp 21; Pulse Ox 98% on R/A; tl4 15:30 BP 135 / 82; Pulse 93; Resp 18; Pulse Ox 99% on R/A; tl4 16:00 BP 152 / 91; Pulse 96; Resp 16; Pulse Ox 98% on R/A; Pain 6/10; tl4 17:00 BP 126 / 41; Pulse 102; Resp 18; Pulse Ox 100% on R/A; tl4 18:00 BP 167 / 6; Pulse 95; Resp 15; Pulse Ox 99% on R/A; tl4 18:56 BP 158 / 98; Pulse 95; Resp 19; Temp 98.3(O); Pulse Ox 100% on R/A; Pain 6/10; tl4 11:09 Body Mass Index 42.22 (145.15 kg, 185.42 cm) db 13:20 Pain Scale: Adult db 16:00 Pain Scale: Adult tl4 18:56 Pain Scale: Adult tl4 Vitals: 13:20 Cardiac Rhythm Assessment Regular Sinus rhythm. db ED Course: 11:04 Patient arrived in ED. mr 11:09 Jessica Minor MD is Attending Physician. sd2 11:12 Triage completed. db 11:13 Arm band placed on Patient placed in waiting room. db 11:21 EKG done. db 11:58 XRAY Chest (1 view) In Process Unspecified. EDMS 12:21 Troponin High Sensitivity Sent. bc6 12:21 CMP Sent. bc6 12:21 CBC with Diff Sent. bc6 12:21 Initial lab(s) drawn, by me, sent to lab. Inserted saline lock: 20 gauge in right bc6 antecubital area, using aseptic technique. Blood collected. Flushed with 10 mL NS. 12:48 Meka Montemayor, RN is Primary Nurse. db 13:20 Patient has correct armband on for positive identification. Placed in gown. Bed in low db position. Call light in reach. Side rails up X2. Adult w/ patient. Provided Education on: ed process, call white. Client placed on continuous cardiac and pulse oximetry monitoring. NIBP monitoring applied. front desk monitor on. Door closed. Noise minimized. Lights dimmed. Moved to private room. Warm blanket given. 13:21 No provider procedures requiring assistance completed. IV is patent, is intact, with db fluids infusing freely, with good blood return, Flushed right antecubital. Oxygen administration via nasal cannula. 13:32 Primary Nurse role handed off by Meka Montemayor, RN tl4 13:32 Logdahl, Christiano, RN is Primary Nurse. tl4 15:18 initiation with Joe at the [facility] transfer center . bc6 16:10 doc to doc. bc6 17:[address] rivka Bell for room B523 at [facility] ( [facility] Em[place]). 17:27 Patient transferred, IV remains in place. tl4 18:25 lorenzo with [facility] accepted transfer. bc6 Administered Medications: 12:53 Drug: Aspirin PO Chewable Tablet 324 mg PO once; 81 mg tablets x 4 Route: PO; ss 13:09 Follow up: Response: No adverse reaction db 13:18 Drug: hydrALAZINE IVP 10 mg IVP once Route: IVP; Site: right antecubital; db 14:29 Follow up: Response: No adverse reaction; Blood pressure is lowered tl4 17:25 Drug: Enoxaparin Sub-Q 1 mg/kg Sub-Q once Route: Sub-Q; Site: right lower abdomen; tl4 18:14 Follow up: Response: No adverse reaction tl4 Medication: 13:20 VIS not applicable for this client. db Outcome: 13:57 ER care complete, transfer ordered by . sd2 18:55 Transferred by ground EMS to [facility], Transfer form completed. tl4 18:55 Condition: stable 18:55 Instructed on the need for transfer, 18:57 Patient left the ED. 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 "FELT LIKE SOMETHING SUDDENLY HIT ME IN MY CHEST". db
--- NOTE | 2024-04-26 13:58 | EDPHYS ---
Physician Documentation [facility] Name: Jose Rafael Stevenson Age: 28 yrs Sex: Male : 1995 Arrival Date: 04/26/2024 Time: 11:02 Bed 12 Private MD: ED Physician Jessica Minor HPI: 04/26 12:33 This 28 yrs old Male presents to ER via Ambulatory with complaints of Chest Pain. sd2 12:33 28 yo M presents with CC of left sided chest pain that started while at work this sd2 morning and has remained constant. Reports it briefly went to the right side of his chest as well but is only currently on the left side. Denies SOB, n/v or diaphoresis. No recent travel or family hx of early cardiac disease or DVT/PE.. Historical: - Allergies: 11:12 No Known Allergies; db - PMHx: 11:12 Hypertensive disorder; db - PSHx: 11:12 Myringotomy and insertion of tympanic ventilation tube; EAR TUBES (Myringotomy and db insertion of tympanic ventilation tube); - Immunization history:: Adult Immunizations unknown. - Infectious Disease History:: Denies. - Social history:: Smoking status: Reported history of juuling and/or vaping. ROS: 12:33 Constitutional: Negative for fever, chills, and weight loss, Eyes: Negative for injury, sd2 pain, redness, and discharge, Cardiovascular: Positive for chest pain, Negative for palpitations, and edema, Respiratory: Negative for shortness of breath, cough, wheezing. Abdomen/GI: Negative for abdominal pain, nausea, vomiting, diarrhea. MS/Extremity: Negative for injury and deformity, Skin: Negative for injury, rash, and discoloration, Exam: 12:33 Constitutional: This is a well developed, well nourished patient who is awake, alert, sd2 and in no acute distress. Head/Face: Normocephalic, atraumatic. Eyes: EOMI, normal conjunctiva bilaterally Chest/axilla: Normal chest wall appearance and motion. Nontender with no deformity. Cardiovascular: Regular rate and rhythm with a normal S1 and S2. No gallops, murmurs, or rubs. 2+ distal pulses. Respiratory: Lungs have equal breath sounds bilaterally, clear to auscultation and percussion. No rales, rhonchi or wheezes noted. No increased work of breathing, no retractions or nasal flaring. Reproducible tenderness noted to left upper anterior chest wall without crepitus. Abdomen/GI: Soft, non-tender, with normal bowel sounds. No guarding or rebound. No evidence of tenderness throughout. Skin: Warm, dry with normal turgor. Normal color with no rashes, no lesions, and no evidence of cellulitis. MS/ Extremity: Pulses equal, no cyanosis. Neurovascular intact. Full, normal range of motion. Psych: Awake, alert, with orientation to person, place and time. Behavior, mood, and affect are within normal limits. 12:33 ECG was reviewed by the Attending Physician. NSR, rate 83, no STEMI criteria, TWIs in inferior and lateral leads Vital Signs: 11:09 BP 157 / 115; Pulse 87; Resp 18; Temp 98.5; Pulse Ox 96% ; Weight 145.15 kg; Height 6 db ft. 1 in. ; 13:20 BP 135 / 105; Pulse 76; Resp 18; Pulse Ox 100% on R/A; Pain 4/10; db 13:45 BP 134 / 79; Pulse 71; Resp 15; Pulse Ox 100% on R/A; tl4 14:28 BP 149 / 91; Pulse 77; Resp 15; Pulse Ox 100% on R/A; tl4 15:00 BP 144 / 76; Pulse 91; Resp 21; Pulse Ox 98% on R/A; tl4 15:30 BP 135 / 82; Pulse 93; Resp 18; Pulse Ox 99% on R/A; tl4 16:00 BP 152 / 91; Pulse 96; Resp 16; Pulse Ox 98% on R/A; Pain 6/10; tl4 17:00 BP 126 / 41; Pulse 102; Resp 18; Pulse Ox 100% on R/A; tl4 18:00 BP 167 / 6; Pulse 95; Resp 15; Pulse Ox 99% on R/A; tl4 18:56 BP 158 / 98; Pulse 95; Resp 19; Temp 98.3(O); Pulse Ox 100% on R/A; Pain 6/10; tl4 11:09 Body Mass Index 42.22 (145.15 kg, 185.42 cm) db 13:20 Pain Scale: Adult db 16:00 Pain Scale: Adult tl4 18:56 Pain Scale: Adult tl4 MDM: 11:25 Medical Screening Exam initiated sd2 12:33 Differential diagnosis: ACS, pericarditis, PTX, PNA, dissection, hypertensive urgency sd2 among others. Data reviewed: vital signs, nurses notes, lab test result(s), EKG, radiologic studies. 13:55 HEART Score: History: Moderately Suspicious (1), ECG: Non specific repolarization sd2 disturbance / LBTB / PM (1), Age: < or = 45 years (0), Risk Factors: 1 or 2 risk factors (1), Troponin: > 1 and < 3 x normal limit (1), Total Score = 4. I considered the following discharge prescriptions or medication management in the emergency department Medications were administered in the Emergency Department. See MAR. Care significantly affected by the following chronic conditions: Hypertension. Counseling: I had a detailed discussion with the patient and/or guardian regarding the historical points, exam findings, and any diagnostic results supporting the discharge/admit diagnosis, lab results, radiology results, the need to transfer to another facility, No cardiac labor custodian capability. ED course: Trop returned elevated with nonspecific findings on EKG in setting of hypertension. Pt advised of need for transfer due to no cardiac labor custodian capability currently. He is in agreement and is stable for transfer at this time. . 16:10 Management of patient was discussed with the following: Hospitalist: Dr. Bell, sd2 hospitalist at [facility], accepts patient for transfer. 04/26 11:29 Order name: CBC with Diff; Complete Time: 12:36 sd2 04/26 11:29 Order name: CMP; Complete Time: 12:50 sd2 04/26 11:29 Order name: Troponin High Sensitivity; Complete Time: 12:50 sd2 04/26 11:29 Order name: XRAY Chest (1 view); Complete Time: 12:12 sd2 04/26 11:22 Order name: EKG; Complete Time: 11:22 db 04/26 11:22 Order name: EKG - Nurse/Tech; Complete Time: 11:22 db Administered Medications: 12:53 Drug: Aspirin PO Chewable Tablet 324 mg PO once; 81 mg tablets x 4 Route: PO; ss 13:09 Follow up: Response: No adverse reaction db 13:18 Drug: hydrALAZINE IVP 10 mg IVP once Route: IVP; Site: right antecubital; db 14:29 Follow up: Response: No adverse reaction; Blood pressure is lowered tl4 17:25 Drug: Enoxaparin Sub-Q 1 mg/kg Sub-Q once Route: Sub-Q; Site: right lower abdomen; tl4 18:14 Follow up: Response: No adverse reaction tl4 Disposition Summary: 04/26/24 13:57 Transfer Ordered Notes: Transfer Location: [facility] sd2 Reason: Higher level of care sd2 Condition: Stable sd2 Problem: new sd2 Symptoms: are unchanged sd2 Accepting Physician: Dr. Bell(04/26/24 18:57) tl4 Diagnosis - Subsequent non-ST elevation (NSTEMI) myocardial infarction sd2 Forms: - Medication Reconciliation Form sd2 - SBAR form sd2 Signatures: Dispatcher [employer] EDMS Emily Hernandez, RN RN Jessica Minor MD MD sd2 Meka Montemayor RN RN Christiano Flores RN RN tl4 Corrections: (The following items were deleted from the chart) 11:13 11:12 Allergies: unknown antibiotic; db db 11:30 11:29 CBC+H.LAB.BRZ ordered. EDMS EDMS 11:30 11:30 COMPREHENSIVE METABOLIC PANEL+C.LAB.BRZ ordered. EDMS EDMS 11:30 11:30 Troponin High Sensitivity+C.LAB.BRZ ordered. EDMS EDMS 11:30 11:30 Chest Single View+RAD.RAD.BRZ ordered. EDMS EDMS 16:09 13:57 TBD sd2 sd2 18:57 16:09 Dr. Bell sd2 tl4
[2024-04-26] MEDS ORDERED: ENOXAPARIN 100 MG/ML SYR SQ ONE (16:29)
[2024-04-26] MEDS ORDERED: ENOXAPARIN 60 MG/0.6 ML SQ ONE (16:30)
[2024-04-26 23:17] VITALS: BP 158/98; TEMP 98.3; O2SAT 100
--- NOTE | 2024-04-27 14:15 | EKG ---
Test Date: 2024-04-26 Test Time: 11:18:54 Supervisor Contact And Service Clerks: ROVERTO MEASUREMENT RESULTS: Intervals: Rate: 83 WA: 122 QRSD: 78 QT: 364 QTc: 427 [place]: P: 43 WA: 122 QRS: 78 T: -75 INTERPRETIVE STATEMENTS: Normal sinus rhythm Inferior infarct, age undetermined ST & T wave abnormality, consider anterolateral ischemia Abnormal ECG Compared to ECG 02/26/2022 21:36:52 Myocardial infarct finding now present ST (T wave) deviation now present Possible ischemia now present Sinus arrhythmia no longer present T-wave abnormality no longer present Electronically Signed On 04-27-24 14:12:41 CDT by Dylan Castillo
== END 2024-04-26 18:57 | disposition short-term general hospital (02) ==
LOC: ER 11:02
DX: I22.2 Subsequent non-ST elevation (NSTEMI) myocardial infarction (principal); I21.9 Acute myocardial infarction, unspecified; I10 Essential (primary) hypertension
CPT/HCPCS: 36415; 71045; 80053; 84484; 85025; 93005; 96372; 96374; 99285; J0360; J1650

== ENCOUNTER 2024-08-28 17:39 | Emergency (ER) | payer SELFPAY ==
[2024-08-28 20:23] LABS: Absolute Basophils 0.1 K/uL (0-0.5); Absolute Eosinophils 0.1 K/uL (0-0.5); Absolute Lymphocytes (CBC) 0.4 K/uL (0.7-4.9); Absolute Monocytes 0.8 K/uL (0.1-1.3); Absolute Neutrophil 11.6 K/uL (1.8-8.0); Basophils % 0.4 % (0-1.3); Eosinophils % 0.7 % (0-4.4); Hematocrit 45.8 % (39.6-49.0); Hemoglobin 15.3 g/dL (13.6-17.9); MCH 26.4 pg (27.0-35.0); MCHC 33.4 g/dL (32.0-36.0); MPV 9.1 fL (7.6-11.3); Monocytes % 6.2 % (3.3-12.3); Neutrophils % 89.7 % (41.7-73.7); Platelets 159 thou/uL (152-406)
[2024-08-28] MEDS ORDERED: ONDANSETRON 4 MG/2 ML VIAL ONE (20:32)
[2024-08-28] MEDS ORDERED: NA CHLORIDE 0.9% 1,000 ML ONE (20:32)
[2024-08-28 20:42] LABS: Albumin 3.8 g/dL (3.4-5.0); Albumin/Globulin Ratio 0.9 (1.1-1.8); Anion Gap 6.2 mEq/L (5.0-15.0); Bilirubin Total 0.5 mg/dL (0.2-1.0); Globulin 4.4 g/dL (2.3-3.5); Potassium 4.2 mEq/L (3.5-5.1); Protein, Total 8.2 g/dL (6.4-8.2); Troponin High Sensitivity 39.6 pg/mL (<58.9)
[2024-08-28 21:00] LABS: Blood Morphology Comment NOT SEEN (NOT SEEN); Platelet Estimate ADEQ; White Blood Cell Scan OK (OK)
--- NOTE | 2024-08-28 21:10 | EDPHYS ---
Physician Documentation [facility] Name: Jose Rafael Stevenson Age: 29 yrs Sex: Male : 1995 Arrival Date: 08/28/2024 Time: 17:39 Bed 19 Private MD: ED Physician Callum Mariano HPI: 08/28 18:13 This 29 yrs old Male presents to ER via Unassigned with complaints of kb Nausea/Vomiting/Diarrhea. 18:13 Pt is a 29 year old male who presents for n/v/d, chest pain that started this morning. kb States he is unable to tolerate anything by mouth. Denies fever. . Historical: - Allergies: 18:17 No Known Allergies; bp - PMHx: 18:17 Hypertensive disorder; bp - PSHx: 18:17 ear tubes (ot); Myringotomy and insertion of tympanic ventilation tube; bp - Immunization history:: Adult Immunizations up to date. - Infectious Disease History:: Denies. - Social history:: Smoking status: Patient denies any tobacco usage or history of. ROS: 18:14 Constitutional: As per HPI kb Exam: 18:14 Constitutional: This is a well developed, well nourished patient who is awake, alert, kb and in no acute distress. Head/Face: Normocephalic, atraumatic. ENT: Moist Mucous membranes Cardiovascular: Regular rate Respiratory: Respirations even and unlabored. No increased work of breathing. Talking in full sentences Skin: Warm, dry with normal turgor. Normal color. MS/ Extremity: Pulses equal, no cyanosis. Neurovascular intact. Full, normal range of motion. Neuro: Awake and alert, GCS 15, oriented to person, place, time, and situation. 18:14 Abdomen/GI: Inspection: abdomen appears normal, Bowel sounds: normal, Palpation: abdomen is soft and non-tender, in all quadrants, 21:24 ECG was reviewed by the Attending Physician. Vital Signs: 18:16 BP 153 / 94; Pulse 103; Resp 16; Temp 97.6; Pulse Ox 98% ; bp 20:00 BP 143 / 88; Pulse 83; Resp 16; Pulse Ox 97% ; me1 21:00 BP 144 / 74; Pulse 80; Resp 16; Temp 98.2; Pulse Ox 97% ; me1 MDM: 17:45 Medical Screening Exam initiated kb 18:15 Data reviewed: vital signs, nurses notes. kb 21:08 Differential diagnosis: Nonspecific abd pain, viral gastroenteritis, dehydration, kb abnormal electrolytes. Test considered but Not performed: CT: ct abd considered but pt has no abd tenderness. Counseling: I had a detailed discussion with the patient and/or guardian regarding the historical points, exam findings, and any diagnostic results supporting the discharge/admit diagnosis, lab results, the need for outpatient follow up, a family practitioner, to return to the emergency department if symptoms worsen or persist or if there are any questions or concerns that arise at home. 08/28 18:15 Order name: CBC with Diff; Complete Time: 21:03 kb 08/28 18:15 Order name: CMP; Complete Time: 20:59 kb 08/28 18:15 Order name: Lipase; Complete Time: 20:59 kb 08/28 18:15 Order name: Urinalysis w/ reflexes; Complete Time: 20:25 kb 08/28 18:15 Order name: Troponin High Sensitivity; Complete Time: 20:59 kb 08/28 21:01 Order name: CBC Smear Scan; Complete Time: 21:03 EDMS 08/28 18:15 Order name: EKG; Complete Time: 18:16 kb 08/28 18:15 Order name: IV Saline Lock; Complete Time: 20:41 kb 08/28 18:15 Order name: Labs collected and sent; Complete Time: 20:41 kb 08/28 18:15 Order name: EKG - Nurse/Tech; Complete Time: 21:30 kb EC:24 Rate is 68 beats/min. Rhythm is regular. QRS [place] is Normal. MI interval is normal at kb 134 msec. QRS interval is normal at 88 msec. QT interval is normal at 382 msec. Administered Medications: 20:41 Drug: Ondansetron IVP 4 mg IVP once; over 2 minutes Route: IVP; Site: right antecubital;me1 21:30 Follow up: Response: No adverse reaction; Nausea is decreased me1 20:41 Drug: NS 0.9% IV 1000 ml IV at 1 bolus Per protocol; to be given as a bolus over 60 me1 minutes Route: IV; Rate: 1 bolus; Site: right antecubital; 21:30 Follow up: Response: No adverse reaction; IV Status: Completed infusion; IV Intake: me1 1000ml Disposition: 08/29 12:09 Co-signature as Attending Physician, Callum Mariano MD I reviewed the patient's care rt provided by the Advanced Practice Provider and agree with the diagnosis and treatment plan. Disposition Summary: 08/28/24 21:09 Discharge Ordered Notes: Location: Home kb Condition: Stable kb Diagnosis - Noninfective gastroenteritis and colitis, unspecified kb Followup: kb - With: Emergency Department - When: As needed - Reason: Worsening of condition Followup: kb - With: Private Physician - When: 2 - 3 days - Reason: Recheck today's complaints, Continuance of care, Re-evaluation by your physician Discharge Instructions: - Discharge Summary Sheet kb - Viral Gastroenteritis, Adult, [id number] kb Forms: - Medication Reconciliation Form kb - Antibiotic Education kb - Prescription Opioid Use kb - Patient Portal Instructions kb - Leadership Thank You Letter kb Prescriptions: - Zofran 4 mg Oral tablet - take 1 tablet ORAL route every 6 hours As needed; 12 tablet; Refills: 0, kb Product Selection Permitted - dicyclomine 20 mg Oral tablet - take 1 tablet ORAL route 4 times per day As needed; 20 tablet; Refills: 0, kb Product Selection Permitted Signatures: Dispatcher [employer] EDMS Nataliya Swift, WILTON WEAVER-C WILTON WEAVER-[place] oPnce, RN RN bp Callum Mariano MD MD rt Nichole Avila, YUDY RN me1 Corrections: (The following items were deleted from the chart) 08/28 18:16 18:16 CBC+H.LAB.BRZ ordered. EDMS EDMS 18:16 18:16 COMPREHENSIVE METABOLIC PANEL+C.LAB.BRZ ordered. EDMS EDMS 18:16 18:16 LIPASE+C.LAB.BRZ ordered. EDMS EDMS 18:16 18:16 Urinalysis+U.LAB.BRZ ordered. EDMS EDMS 18:16 18:16 Troponin High Sensitivity+C.LAB.BRZ ordered. EDMS EDMS
--- NOTE | 2024-08-28 21:10 | ER ---
Nurse's Notes [facility] Name: Jose Rafael Stevenson Age: 29 yrs Sex: Male : 1995 Arrival Date: 08/28/2024 Time: 17:39 Bed 19 Private MD: Diagnosis: Noninfective gastroenteritis and colitis, unspecified Presentation: 08/28 18:16 Chief complaint: Patient states: N/V/D SINCE THIS AM. Coronavirus screen: At this time, bp the client does not indicate any symptoms associated with coronavirus-19. Ebola Screen: No symptoms or risks identified at this time. Initial Sepsis Screen: Does the patient meet any 2 criteria? HR > 90 bpm. No. Patient's initial sepsis screen is negative. Does the patient have a suspected source of infection? No. Patient's initial sepsis screen is negative. Risk Assessment: Do you want to hurt yourself or someone else? Patient reports no desire to harm self or others. Onset of symptoms was August 28, 2024. 18:16 Method Of Arrival: Ambulatory bp 18:16 Acuity: DOMO 3 bp Historical: - Allergies: 18:17 No Known Allergies; bp - PMHx: 18:17 Hypertensive disorder; bp - PSHx: 18:17 ear tubes (ot); Myringotomy and insertion of tympanic ventilation tube; bp - Immunization history:: Adult Immunizations up to date. - Infectious Disease History:: Denies. - Social history:: Smoking status: Patient denies any tobacco usage or history of. Screenin:27 [facility] ED Fall Risk Assessment (Adult) History of falling in the last 3 months, me1 including since admission No falls in past 3 months (0 pts) Confusion or Disorientation No (0 pts) Intoxicated or Sedated No (0 pts) Impaired Gait No (0 pts) Mobility Assist Device Used No (0 pt) Altered Elimination No (0 pt) Score/Fall Risk Level 0 - 2 = Low Risk Maintained a safe environment, Provided non-skid footwear, Hourly rounding (assess needs \T\ fall precautionary measures) done. Abuse screen: Denies threats or abuse. Nutritional screening: No deficits noted. Tuberculosis screening: No symptoms or risk factors identified. Assessment: 21:27 General: Appears ill, obese, well groomed, well developed, Behavior is calm, me1 cooperative, appropriate for age, Reports N/V/D SINCE THIS AM. Pain: Denies pain. Neuro: Level of Consciousness is awake, alert, obeys commands, Oriented to person, place, time, situation, Appropriate for age. Cardiovascular: Patient's skin is warm and dry. Respiratory: Airway is patent Respiratory effort is even, unlabored, Respiratory pattern is regular, symmetrical. GI: Abdomen is round non-distended, Bowel sounds present X 4 quads. Reports diarrhea, nausea, vomiting, since this morning. : No signs and/or symptoms were reported regarding the genitourinary system. EENT: No signs and/or symptoms were reported regarding the EENT system. Derm: Skin is intact, is healthy with good turgor, Skin is pink, warm \T\ dry. Musculoskeletal: No signs and/or symptoms reported regarding the musculoskeletal system. Vital Signs: 18:16 BP 153 / 94; Pulse 103; Resp 16; Temp 97.6; Pulse Ox 98% ; bp 20:00 BP 143 / 88; Pulse 83; Resp 16; Pulse Ox 97% ; me1 21:00 BP 144 / 74; Pulse 80; Resp 16; Temp 98.2; Pulse Ox 97% ; me1 ED Course: 17:42 Patient arrived in ED. gm2 17:45 Nataliya Swift FNP-C is [facility]. kb 17:45 Callum Mariano MD is Attending Physician. kb 18:17 Triage completed. bp 18:17 Arm band placed on. bp 20:09 Nichole Avila, RN is Primary Nurse. me1 20:41 CMP Sent. me1 20:41 Lipase Sent. me1 20:41 Initial lab(s) drawn, by id, sent to lab. Inserted saline lock: 22 gauge in right id1 antecubital area, using aseptic technique. 21:27 Patient has correct armband on for positive identification. Bed in low position. Call [facility] [place] in reach. Side rails up X 1. Provided Education on: POC. Verbalized understanding.. Client placed on continuous cardiac and pulse oximetry monitoring. NIBP monitoring applied. Pulse ox on. NIBP on. 21:27 No provider procedures requiring assistance completed. me1 21:30 EKG done, by ED staff, reviewed by Nataliya DIAZ. me1 21:31 IV discontinued, intact, bleeding controlled, No redness/swelling at site. Pressure me1 dressing applied. Administered Medications: 20:41 Drug: Ondansetron IVP 4 mg IVP once; over 2 minutes Route: IVP; Site: right antecubital;me1 21:30 Follow up: Response: No adverse reaction; Nausea is decreased me1 20:41 Drug: NS 0.9% IV 1000 ml IV at 1 bolus Per protocol; to be given as a bolus over 60 me1 minutes Route: IV; Rate: 1 bolus; Site: right antecubital; 21:30 Follow up: Response: No adverse reaction; IV Status: Completed infusion; IV Intake: me1 1000ml Medication: 21: VIS not applicable for this client. me1 Intake: 21:30 IV: 1000ml; Total: 1000ml. me1 Outcome: 21:09 Discharge ordered by . luis 21:31 Discharged to home ambulatory, with significant other, me1 21:31 Condition: stable 21:31 Discharge instructions given to patient, significant other, Instructed on discharge instructions, follow up and referral plans. medication usage, Demonstrated understanding of instructions, follow-up care, medications, Prescriptions given X 2, 21:32 Patient left the ED. me1 Signatures: Nataliya Swift, ASIM-C RN OR LPN-Chester Ponce RN RN bp Nichole Avila RN RN id1 Latoya Veronica 2 Corrections: (The following items were deleted from the chart) 18:16 Chief complaint: Patient states: N/V/D SINCE THIS AM me1
[2024-08-28 21:51] VITALS: O2SAT 97
[2024-08-28 21:53] VITALS: BP 144/74; TEMP 98.2
== END 2024-08-28 21:32 | disposition home or self-care (01) ==
LOC: ER 17:39
DX: K52.9 Noninfective gastroenteritis and colitis, unspecified (principal)
CPT/HCPCS: 36415; 80053; 81001; 83690; 84484; 85025; J2405; J7030